=== PATIENT | female | born 1955 | race Caucasian/White ===

== ENCOUNTER 2017-07-25 16:23 | Emergency (ER) | payer MEDICARE, OTHER ==
[~2017-07-25] VITALS: Ht 165.1 cm; Wt 56.7 kg
[~2017-07-25 16:23] MED LIST: ALBIPROI INH; ALBU90OI61 INH; ALPR.5 PO; ANTI ANXIETY MED; AZIT250 PO; CARB200; DULO30 PO; DULO60 PO; FLUT1DIS8 INH; HYDACE5 PO; HYDGUAL120 PO; IBUP400 PO; KETO10 PO; LEVFLO500 PO; METCAR500 PO; Multivitamin1 EAC2 PO; NAPR500; NAPR500 PO; OXYACE5T PO; PARO20; PRED20 PO; RXOXYACE PO; TRAZ100; TRAZ100 PO
[2017-07-25] MEDS ORDERED: BUSP10 PO (16:33)
[2017-07-25 16:54] LABS: BASOPHILS ABSOLUTE AUTO 0.04 K/mm3 (0.00-0.23); BASOPHILS PERCENT AUTO 1 % (0-2); EOSINOPHILS ABSOLUTE AUTO 0.07 K/mm3 (0.00-0.68); EOSINOPHILS PERCENT AUTO 1 % (0-6); Hematocrit 43.9 % (33.0-51.0); Hemoglobin 14.1 g/dL (11.5-16.0); IMMATURE GRAN ABSOLUTE AUTO 0.01 K/mm3 (0.00-0.10); IMMATURE GRAN PERCENT AUTO 0 % (0-1); LYMPHOCYTES ABSOLUTE AUTO 1.87 K/mm3 (0.84-5.20); LYMPHOCYTES PERCENT AUTO 37 % (21-46); MONOCYTES ABSOLUTE AUTO 0.53 K/mm3 (0.16-1.47); MONOCYTES PERCENT AUTO 11 % (4-13); Mean Corpuscular HGB 30.6 pg (26.0-34.0); Mean Corpuscular HGB Conc 32.1 g/dL (31.5-36.5); Mean Corpuscular Volume 95 fL (80-100); Mean Platelet Volume 9.5 fL (9.1-12.4); NEUTROPHILS ABSOLUTE AUTO 2.55 K/mm3 (1.96-9.15); NEUTROPHILS PERCENT AUTO 50 % (41-73); Platelet Count 422 K/mm3 (150-400); RDW Coefficient Variation 12.5 % (11.7-14.2); RDW Standard Deviation 44.1 fL (35.1-46.3); Red Blood Cell Count 4.61 M/mm3 (3.80-5.20); White Blood Cell Count 5.07 K/mm3 (4.00-11.30)
[2017-07-25 17:13] LABS: Alanine Aminotransfer (ALT/SGP 18 U/L (12-78); Albumin, Blood 3.9 g/dL (3.4-5.0); Albumin/Globulin Ratio 0.9 (0.8-1.8); Alk Phos 121 U/L (50-136); Anion Gap 7 mmol/L (6-16); Aspartate Aminotrans (AST/SGOT 21 U/L (12-37); Bilirubin, Total 0.4 mg/dL (0.1-1.0); Blood Urea Nitrogen 6 mg/dL (8-24); Bun/Creatinine Ratio 8.2 (12.0-20.0); CO2, Blood 28 mmol/L (21-32); Calcium, Blood 9.2 mg/dL (8.5-10.1); Chloride, Blood 99 mmol/L (98-108); Creatinine, Blood 0.73 mg/dL (0.40-1.00); Globulin, Blood 4.3 g/dL (2.2-4.0); Glomerular Filtration Rate >60 (60-); Glucose, Blood 119 mg/dL (70-99); Potassium, Blood 4.1 mmol/L (3.5-5.5); Sodium, Blood 134 mmol/L (136-145); Total Protein, Blood 8.2 g/dL (6.4-8.2)
[2017-07-25 17:41] LABS: PCO2 Arterial 45.8 mmHg (35-45); PO2 Arterial 61.9 mmHg (80-100); pH Blood Arterial 7.41 (7.35-7.45)
== END 2017-07-25 18:10 | disposition home or self-care (01) ==
LOC: ER 16:23
PROVIDERS: Emergency Medicine
DX: R04.2 Hemoptysis (principal); J44.9 Chronic obstructive pulmonary disease, unspecified; F32.9 Major depressive disorder, single episode, unspecified; Z79.899 Other long term (current) drug therapy
CPT/HCPCS: 36415; 36600; 71046; 80053; 82803; 85025; 93005; 93010; 99283

== ENCOUNTER 2018-05-06 17:19 | Inpatient (IN) | payer MEDICARE, OTHER ==
[~2018-05-06] VITALS: Ht 162.6 cm; Wt 51.9 kg
[~2018-05-06 17:19] MED LIST changes: +ADVIL PO; +AZIT500 PO; +BUSP10 PO; -TRAZ100 PO
[2018-05-06 18:29] LABS: BASOPHILS ABSOLUTE AUTO 0.04 K/mm3 (0.00-0.23); BASOPHILS PERCENT AUTO 0 % (0-2); EOSINOPHILS PERCENT AUTO 0 % (0-6); Hematocrit 37.4 % (33.0-51.0); Hemoglobin 12.4 g/dL (11.5-16.0); IMMATURE GRAN ABSOLUTE AUTO 0.18 K/mm3 (0.00-0.10); IMMATURE GRAN PERCENT AUTO 1 % (0-1); LYMPHOCYTES ABSOLUTE AUTO 0.83 K/mm3 (0.84-5.20); LYMPHOCYTES PERCENT AUTO 4 % (21-46); MONOCYTES ABSOLUTE AUTO 2.33 K/mm3 (0.16-1.47); MONOCYTES PERCENT AUTO 10 % (4-13); Mean Corpuscular HGB Conc 33.2 g/dL (31.5-36.5); Mean Corpuscular Volume 90 fL (80-100); Mean Platelet Volume 10.3 fL (9.1-12.4); NEUTROPHILS ABSOLUTE AUTO 19.93 K/mm3 (1.96-9.15); NEUTROPHILS PERCENT AUTO 85 % (41-73); Platelet Count 401 K/mm3 (150-400); RDW Standard Deviation 46.4 fL (35.1-46.3); Red Blood Cell Count 4.14 M/mm3 (3.80-5.20); White Blood Cell Count 23.31 K/mm3 (4.00-11.30)
[2018-05-06 18:44] LABS: Alanine Aminotransfer (ALT/SGP 14 U/L (12-78); Albumin, Blood 2.8 g/dL (3.4-5.0); Albumin/Globulin Ratio 0.6 (0.8-1.8); Alk Phos 105 U/L (50-136); Anion Gap 9 mmol/L (6-16); Aspartate Aminotrans (AST/SGOT 19 U/L (12-37); Bilirubin, Total 0.9 mg/dL (0.1-1.0); Blood Urea Nitrogen 8 mg/dL (8-24); Bun/Creatinine Ratio 13.7 (12.0-20.0); CO2, Blood 29 mmol/L (21-32); Calcium, Blood 8.8 mg/dL (8.5-10.1); Chloride, Blood 91 mmol/L (98-108); Creatinine, Blood 0.58 mg/dL (0.40-1.00); Globulin, Blood 4.8 g/dL (2.2-4.0); Glomerular Filtration Rate >60 (60-); Glucose, Blood 101 mg/dL (70-99); Potassium, Blood 3.8 mmol/L (3.5-5.5); Sodium, Blood 129 mmol/L (136-145); Total Protein, Blood 7.6 g/dL (6.4-8.2)
[2018-05-06 18:47] LABS: International Normalized Ratio 1.03; Prothrombin Time Results 10.9 Sec (9.7-11.5)
[2018-05-06 18:54] LABS: Troponin I <0.015 ng/mL (0.000-0.040)
[2018-05-06 19:21] LABS: Influenza A Negative (NEGATIVE); Influenza B Negative (NEGATIVE)
[2018-05-06] MEDS ORDERED: **INCOMPLETE MED REC (19:39)
[2018-05-06] MEDS ORDERED: TRAZ100 PO (19:45)
[2018-05-06] MEDS ORDERED: DULO30 PO (19:46)
[2018-05-06] MEDS ORDERED: Buspirone HCl7.5 MG PO (19:46)
[2018-05-06] MEDS ORDERED: ALBU90OI INH (19:48)
[2018-05-06] MEDS ORDERED: FLUT1DIS5 INH (20:01)
[2018-05-06] MEDS ORDERED: ALBU2.5V5 NEB (20:02)
--- NOTE | 2018-05-06 20:06 | NUR ---
pt has chronic back pain from old fracture she takes alleve and uses marijuanna for relief. may benefit from lidoderm patch. pt states she cannot lay flat. She has had minimal medical care and has not followed up on her cancer care recently. pt states she recently had a fall. established relationship will follow up to see if she will maintain regular health care.
[2018-05-06 21:34] LABS: Source, Urine Catheter
[2018-05-06 21:36] LABS: Bilirubin, Urine Neg (Neg); Blood, Urine 1+ (Neg); Glucose Qualitative, Urine Neg (Neg); Ketones, Urine 2+ (Neg); Leukocyte Esterase, Urine Neg (Neg); Nitrite, Urine Neg (Neg); Protein, Urine Neg (Neg); Specific Gravity, Urine 1.005 (1.003-1.022); Urobilinogen, Urine 1+ (Normal)
[2018-05-06 21:43] LABS: Appearance, Urine Clear (Clear); Color, Urine Yellow (P-Yellow)
[2018-05-06 21:44] LABS: Bacteria Few /hpf; Red Blood Cells, Urine 0-2 /hpf (0-2); Squamous Epithelial Cells Not Seen /hpf (Few); Transitional Epithelial Cells Few /hpf (0-Rare); White Blood Cells, Urine 0-2 /hpf (0-5)
[2018-05-07 01:20] LABS: Hematocrit 35.5 % (33.0-51.0); Hemoglobin 11.6 g/dL (11.5-16.0); Mean Corpuscular HGB 29.9 pg (26.0-34.0); Mean Corpuscular HGB Conc 32.7 g/dL (31.5-36.5); Mean Corpuscular Volume 92 fL (80-100); Mean Platelet Volume 9.7 fL (9.1-12.4); Platelet Count 358 K/mm3 (150-400); RDW Coefficient Variation 13.9 % (11.7-14.2); RDW Standard Deviation 47.2 fL (35.1-46.3); Red Blood Cell Count 3.88 M/mm3 (3.80-5.20); White Blood Cell Count 16.65 K/mm3 (4.00-11.30)
[2018-05-07 01:38] LABS: Anion Gap 9 mmol/L (6-16); Blood Urea Nitrogen 7 mg/dL (8-24); Bun/Creatinine Ratio 11.2 (12.0-20.0); CO2, Blood 27 mmol/L (21-32); Calcium, Blood 8.6 mg/dL (8.5-10.1); Chloride, Blood 99 mmol/L (98-108); Creatinine, Blood 0.63 mg/dL (0.40-1.00); Glomerular Filtration Rate >60 (60-); Glucose, Blood 134 mg/dL (70-99); Potassium, Blood 3.2 mmol/L (3.5-5.5); Sodium, Blood 135 mmol/L (136-145)
[2018-05-07 01:41] LABS: Source, Urine Catheter
[2018-05-07 01:44] LABS: Bilirubin, Urine Neg (Neg); Blood, Urine 1+ (Neg); Glucose Qualitative, Urine Neg (Neg); Ketones, Urine 2+ (Neg); Leukocyte Esterase, Urine 1+ (Neg); Nitrite, Urine Neg (Neg); Protein, Urine Neg (Neg); Specific Gravity, Urine 1.005 (1.003-1.022); Urobilinogen, Urine 2+ (Normal)
[2018-05-07 01:47] LABS: Appearance, Urine Clear (Clear); Color, Urine Yellow (P-Yellow)
[2018-05-07 01:49] LABS: Bacteria Few /hpf; Red Blood Cells, Urine 0-2 /hpf (0-2); Squamous Epithelial Cells Rare /hpf (Few)
--- NOTE | 2018-05-07 07:41 | NUR ---
SHIFT SUMMARY RECEIVED REPORT FROM DIAN DOMINGUEZ IN ED. ARRIVED TO ICU VIA STRETCHER @ AROUND 2200. AMBULATED TO BED FROM STRETCHER WITHOUT ASSISTANCE. A/O X4, ABLE TO MAKE NEEDS KNOWN. COOPERATIVE WITH CARE. ANSWERS QUESTIONS APPROPRIATELY. NO C/O PAIN/DISCOMFORT. ON 1L VIA NC SATING @ 95%; EQUAL RISE AND FALL; RESPIRATIONS EVEN. HYPOTENSIVE. RECEIVED 1L NS. APPEARED TO REST. NO ACUTE CHANGES NOTED. AMBULATED TO BSC WITHOUT ASSISTANCE. BED IN LOWEST POSITION. CALL LIGHT IN REACH. CONTINUED TO MONITOR OVER SHIFT. REPORT GIVEN TO DAY SHIFT RN.
--- NOTE | 2018-05-07 17:31 | NUR ---
PT HAS HAD REPEATED LOW BLOOD PRESSURES THROUGHOUT DAY. HAS RECEIVED 1.5 LITERS NS WITH MINIMAL INCREASE IN SYSTOLIC BP. IS NOTIFIED AND ORDER FOR MIDODRINE PO TID. TO START TONIGHT AT 1800.
--- NOTE | 2018-05-07 17:53 | NUR ---
END OF SHIFT; PT HAD LOW BP THROUGHOUT SHIFT. RECEIVED 1.5 LITERS NS WITH MINIMAL RESULTS. NEW ORDER FOR MIDODRINE 5MG TID RECIEVED. FIRST DOSE AT 1800 TONIGHT. PT HAS PLEASANT AFFECT AND IS COOPERATIVE WITH CARE. LUNGS ARE COARSE THROUGHOUT AND PT IS ON ROOM AIR AT THIS TIME. SHE IS AO X 4. PT IS IN CONTACT PRECAUTINS FOR MRSA. WILL CONTINUE TO MONITOR THIS PATIENT UNTIL REPORT AND HAND OFF TO NOC SHIFT RN.
[2018-05-08 03:36] LABS: BASOPHILS ABSOLUTE AUTO 0.03 K/mm3 (0.00-0.23); BASOPHILS PERCENT AUTO 0 % (0-2); EOSINOPHILS PERCENT AUTO 0 % (0-6); Hematocrit 32.7 % (33.0-51.0); Hemoglobin 10.4 g/dL (11.5-16.0); IMMATURE GRAN ABSOLUTE AUTO 0.23 K/mm3 (0.00-0.10); IMMATURE GRAN PERCENT AUTO 1 % (0-1); LYMPHOCYTES ABSOLUTE AUTO 0.26 K/mm3 (0.84-5.20); LYMPHOCYTES PERCENT AUTO 1 % (21-46); MONOCYTES ABSOLUTE AUTO 0.95 K/mm3 (0.16-1.47); MONOCYTES PERCENT AUTO 4 % (4-13); Mean Corpuscular HGB 29.5 pg (26.0-34.0); Mean Corpuscular HGB Conc 31.8 g/dL (31.5-36.5); Mean Corpuscular Volume 93 fL (80-100); Mean Platelet Volume 9.8 fL (9.1-12.4); NEUTROPHILS ABSOLUTE AUTO 23.74 K/mm3 (1.96-9.15); NEUTROPHILS PERCENT AUTO 94 % (41-73); Platelet Count 429 K/mm3 (150-400); RDW Coefficient Variation 14.3 % (11.7-14.2); RDW Standard Deviation 48.9 fL (35.1-46.3); Red Blood Cell Count 3.52 M/mm3 (3.80-5.20); White Blood Cell Count 25.21 K/mm3 (4.00-11.30)
[2018-05-08 03:55] LABS: Alanine Aminotransfer (ALT/SGP 14 U/L (12-78); Albumin, Blood 2.2 g/dL (3.4-5.0); Albumin/Globulin Ratio 0.5 (0.8-1.8); Alk Phos 72 U/L (50-136); Anion Gap 9 mmol/L (6-16); Aspartate Aminotrans (AST/SGOT 18 U/L (12-37); Bilirubin, Total 0.3 mg/dL (0.1-1.0); Blood Urea Nitrogen 7 mg/dL (8-24); Bun/Creatinine Ratio 11.5 (12.0-20.0); CO2, Blood 25 mmol/L (21-32); Calcium, Blood 8.8 mg/dL (8.5-10.1); Chloride, Blood 105 mmol/L (98-108); Creatinine, Blood 0.61 mg/dL (0.40-1.00); Globulin, Blood 4.1 g/dL (2.2-4.0); Glomerular Filtration Rate >60 (60-); Glucose, Blood 172 mg/dL (70-99); Potassium, Blood 2.6 mmol/L (3.5-5.5); Sodium, Blood 139 mmol/L (136-145); Total Protein, Blood 6.3 g/dL (6.4-8.2)
--- NOTE | 2018-05-08 04:38 | NUR ---
SHIFT SUMMARY: PATIENT HAD VERY FEW EPISODES OF SOB THIS SHIFT, UNABLE TO OBTAIN SPUTUM PATIENT DOES NOT HAVE A PRODUCTIVE COUGH AT THIS TIME. PATIENT VSS, CALL LIGHT WITHIN REACH AND USED APPROPRIATLY, BED LOW AND LOCKED AND MONITORING PATIENT CLOSELY.
--- NOTE | 2018-05-08 04:49 | NUR ---
K+ PATIENTS POTASSIUM LEVEL DROPPED TO 2.6, MD CHRISTINE NOTIFIED, ORDERS RECIEVED
--- NOTE | 2018-05-08 07:40 | NUR ---
ASSUMED CARE: PT SITTING UP IN BED, AWAKE, DENIES NEEDS OR CONCERNS AT THIS TIME. INDEPENDENT TO BSC
--- NOTE | 2018-05-08 07:59 | NUR ---
PT HAS IV KCL ORDERED BUT IV IS TOO PAINFUL. DISCUSSED WITH TILTROTOR CREW CHIEF TO DETERMINE WHO CAN PLACE POWERGLIDE. SPOKE WITH DANIELLA BIGGS. RN TO PLACE POWERGLIDE LATER THIS AM
[2018-05-08] MEDS ORDERED: GUAI600T33 PO (10:10)
[2018-05-08] MEDS ORDERED: MIDO5 PO (10:10)
[2018-05-08] MEDS ORDERED: LEVFLO500 PO (10:10)
[2018-05-08] MEDS ORDERED: PRED10 PO (10:12)
--- NOTE | 2018-05-08 13:36 | NUR ---
PT GIVEN DC INSTRUCTIONS. IVS DC'D WNL. DISCHARGE PLANNING SCHEDULED FOLLOW UP APPOINTMENT. PT ESCORTED OUT VIA WHEEL CHAIR BY HOSPITAL STAFF. NO FURTHER QUESTIONS OR CONCERNS.
--- NOTE | 2018-05-08 17:51 | NUR ---
Makayla was happy to be going home. She expressed hope for continued recovery and denied any lifestyle changes needed. She was appreciative of prayer and emotional encouragement.
== END 2018-05-08 13:10 | disposition home or self-care (01) | DRG 191 ==
LOC: ER 17:19 → ICUW 21:37 → PCU 22:01 → ICUW 22:10
PROVIDERS: Emergency Medicine; Internal Medicine; Nurse Practitioner Acute Care; ADMIT Internal Medicine
DX: J44.1 Chronic obstructive pulmonary disease with (acute) exacerbation (principal); E87.1 Hypo-osmolality and hyponatremia; C34.12 Malignant neoplasm of upper lobe, left bronchus or lung; E87.6 Hypokalemia; F17.210 Nicotine dependence, cigarettes, uncomplicated; Z85.118 Personal history of other malignant neoplasm of bronchus and lung; Z90.2 Acquired absence of lung [part of]; F32.9 Major depressive disorder, single episode, unspecified; E86.0 Dehydration
CPT/HCPCS: 36415; 71045; 80048; 80053; 81001; 83605; 83690; 83735; 84145; 84484; 85025; 85027; 85610; 85730; 87040; 87081; 87086; 87804; 93005; 93010; 93971; 94640; 94760; 96365; 96367; 96375; 99285-25; J0456; J0696; J1650; J2930; J3480; J7030; J7040; J7050; J7120; P9612

== ENCOUNTER 2020-10-20 15:47 | Emergency (ER) | payer MEDICARE, OTHER ==
[~2020-10-20] VITALS: Ht 165.1 cm; Wt 52.2 kg
[~2020-10-20 15:47] MED LIST changes: +**INCOMPLETE MED REC; +ALBU2.5V5 NEB; +ALBU90OI INH; +FLUT1DIS5 INH; +GUAI600T33 PO; +MIDO5 PO; +PRED10 PO
[2020-10-20 16:22] LABS: BASOPHILS ABSOLUTE AUTO 0.05 K/mm3 (0.00-0.23); BASOPHILS PERCENT AUTO 0 % (0-2); EOSINOPHILS ABSOLUTE AUTO 0.04 K/mm3 (0.00-0.68); EOSINOPHILS PERCENT AUTO 0 % (0-6); Hemoglobin 15.2 g/dL (11.5-16.0); IMMATURE GRAN ABSOLUTE AUTO 0.06 K/mm3 (0.00-0.10); IMMATURE GRAN PERCENT AUTO 1 % (0-1); LYMPHOCYTES ABSOLUTE AUTO 1.09 K/mm3 (0.84-5.20); LYMPHOCYTES PERCENT AUTO 9 % (21-46); MONOCYTES ABSOLUTE AUTO 1.32 K/mm3 (0.16-1.47); MONOCYTES PERCENT AUTO 11 % (4-13); Mean Corpuscular HGB 29.8 pg (26.0-34.0); Mean Corpuscular HGB Conc 33.8 g/dL (31.5-36.5); Mean Corpuscular Volume 88 fL (80-100); NEUTROPHILS ABSOLUTE AUTO 9.34 K/mm3 (1.96-9.15); NEUTROPHILS PERCENT AUTO 79 % (41-73); Platelet Count 389 K/mm3 (150-400); RDW Coefficient Variation 13.6 % (11.7-14.2); RDW Standard Deviation 43.9 fL (35.1-46.3)
[2020-10-20 16:39] LABS: Alanine Aminotransfer (ALT/SGP 13 U/L (12-78); Albumin, Blood 3.1 g/dL (3.4-5.0); Albumin/Globulin Ratio 0.6 (0.8-1.8); Alk Phos 76 U/L (50-136); Anion Gap 10 mmol/L (6-16); Aspartate Aminotrans (AST/SGOT 11 U/L (12-37); Blood Urea Nitrogen 26 mg/dL (8-24); Bun/Creatinine Ratio 30.6 (12.0-20.0); CO2, Blood 28 mmol/L (21-32); Calcium, Blood 9.7 mg/dL (8.5-10.1); Chloride, Blood 90 mmol/L (98-108); Creatinine, Blood 0.85 mg/dL (0.40-1.00); Glomerular Filtration Rate >60 (60-); Glucose, Blood 116 mg/dL (70-99); Sodium, Blood 128 mmol/L (136-145); Total Protein, Blood 8.1 g/dL (6.4-8.2); Troponin I <0.015 ng/mL (0.000-0.040)
[2020-10-20] MEDS ORDERED: DOXY100 PO (18:22)
[2020-10-20] MEDS ORDERED: POTA20PAC PO (18:22)
[2020-10-20] MEDS ORDERED: PRED20 PO (18:22)
[2020-10-20] MEDS ORDERED: ONDA4ODT MM (18:37)
== END 2020-10-20 18:56 | disposition home or self-care (01) ==
LOC: ER 15:47
PROVIDERS: Emergency Medicine
DX: J20.9 Acute bronchitis, unspecified (principal); E87.6 Hypokalemia; E87.1 Hypo-osmolality and hyponatremia; J44.0 Chronic obstructive pulmonary disease with (acute) lower respiratory infection; Z88.0 Allergy status to penicillin; Z91.048 Other nonmedicinal substance allergy status; Z87.891 Personal history of nicotine dependence
CPT/HCPCS: 71045; 80053; 84484; 85025; 93005; 93010; 99285-25; A9270; J7512

== ENCOUNTER 2020-10-27 16:09 | Inpatient (IN) | payer MEDICARE, OTHER ==
[~2020-10-27] VITALS: Ht 154.9 cm; Wt 64.5 kg
[~2020-10-27 16:09] MED LIST changes: +DOXY100 PO; +ONDA4ODT MM; +POTA20PAC PO
[2020-10-27 16:57] LABS: Alanine Aminotransfer (ALT/SGP 9 U/L (12-78); Albumin/Globulin Ratio 0.5 (0.8-1.8); Alk Phos 64 U/L (50-136); Anion Gap 10 mmol/L (6-16); Aspartate Aminotrans (AST/SGOT 11 U/L (12-37); Bilirubin, Total 0.9 mg/dL (0.1-1.0); Blood Urea Nitrogen 14 mg/dL (8-24); Bun/Creatinine Ratio 15.1 (12.0-20.0); CO2, Blood 25 mmol/L (21-32); Calcium, Blood 8.9 mg/dL (8.5-10.1); Chloride, Blood 92 mmol/L (98-108); Creatinine, Blood 0.93 mg/dL (0.40-1.00); Glomerular Filtration Rate >60 (60-); Glucose, Blood 67 mg/dL (70-99); Potassium, Blood 4.4 mmol/L (3.5-5.5); Sodium, Blood 127 mmol/L (136-145)
[2020-10-27 16:58] LABS: International Normalized Ratio 1.14; Prothrombin Time Results 12.2 Sec (9.7-11.5)
[2020-10-27 17:02] LABS: PCO2 Arterial 35.8 mmHg (35-45); PO2 Arterial 133 mmHg (80-100); pH Blood Arterial 7.43 (7.35-7.45)
[2020-10-27 17:29] LABS: Hematocrit 32.1 % (33.0-51.0); Hemoglobin 10.5 g/dL (11.5-16.0); Mean Corpuscular HGB 29.7 pg (26.0-34.0); Mean Corpuscular HGB Conc 32.7 g/dL (31.5-36.5); Mean Corpuscular Volume 91 fL (80-100); Mean Platelet Volume 9.5 fL (9.1-12.4); Platelet Count 322 K/mm3 (150-400); RDW Coefficient Variation 14.3 % (11.7-14.2); RDW Standard Deviation 47.8 fL (35.1-46.3); Red Blood Cell Count 3.54 M/mm3 (3.80-5.20); White Blood Cell Count 30.19 K/mm3 (4.00-11.30)
[2020-10-27 17:59] LABS: Source, Urine Catheter
[2020-10-27 18:02] LABS: Appearance, Urine Hazy (Clear); Blood, Urine 1+ (Neg); Color, Urine Amber (P-Yellow); Glucose Qualitative, Urine Neg (Neg); Ketones, Urine 1+ (Neg); Leukocyte Esterase, Urine 1+ (Neg); Nitrite, Urine Neg (Neg); Protein, Urine 3+ (Neg); Urobilinogen, Urine 2+ (Normal)
[2020-10-27 18:07] LABS: BAND PERCENT MAN 34 % (0-8); BASOPHILS PERCENT MAN 0 % (0-2); EOSINOPHILS PERCENT MAN 0 % (0-6); LYMPHOCYTES % ATYPICAL MANUAL 1 % (0-0); LYMPHOCYTES PERCENT MAN 1 % (21-46); METAMYELOCYTE PERCENT MAN 1 % (0-0); MONOCYTES PERCENT MAN 2 % (4-13); NEUTROPHILS ABSOLUTE MAN 28.68 K/mm3 (1.96-9.15); SEG NEUTROPHILS PERCENT MAN 61 % (41-73); TOTAL CELLS COUNTED 100
[2020-10-27] MEDS ORDERED: Buspirone HCl7.5 MG PO (18:12)
[2020-10-27] MEDS ORDERED: DULO60 PO (18:12)
[2020-10-27] MEDS ORDERED: TRAZ100 PO (18:13)
[2020-10-27 18:20] LABS: Bilirubin, Urine 1+ (Neg)
[2020-10-27 18:21] LABS: Hyaline Casts 0-2 /lpf (0-2)
[2020-10-27 18:22] LABS: Amorphous Light (0-Heavy); Bacteria Mod /hpf; Red Blood Cells, Urine 0-2 /hpf (0-2); Squamous Epithelial Cells Rare /hpf (Few)
[2020-10-28 08:13] LABS: Hematocrit 35.1 % (33.0-51.0); Hemoglobin 11.6 g/dL (11.5-16.0); Mean Corpuscular HGB 29.9 pg (26.0-34.0); Mean Corpuscular Volume 91 fL (80-100); Mean Platelet Volume 9.9 fL (9.1-12.4); Platelet Count 341 K/mm3 (150-400); RDW Coefficient Variation 14.6 % (11.7-14.2); RDW Standard Deviation 48.2 fL (35.1-46.3); Red Blood Cell Count 3.88 M/mm3 (3.80-5.20); White Blood Cell Count 36.28 K/mm3 (4.00-11.30)
[2020-10-28 08:35] LABS: Alanine Aminotransfer (ALT/SGP 7 U/L (12-78); Albumin, Blood 1.6 g/dL (3.4-5.0); Albumin/Globulin Ratio 0.4 (0.8-1.8); Alk Phos 59 U/L (50-136); Anion Gap 7 mmol/L (6-16); Aspartate Aminotrans (AST/SGOT 10 U/L (12-37); Bilirubin, Total 0.6 mg/dL (0.1-1.0); Blood Urea Nitrogen 12 mg/dL (8-24); Bun/Creatinine Ratio 19.2 (12.0-20.0); CO2, Blood 25 mmol/L (21-32); Chloride, Blood 99 mmol/L (98-108); Creatinine, Blood 0.63 mg/dL (0.40-1.00); Globulin, Blood 3.8 g/dL (2.2-4.0); Glomerular Filtration Rate >60 (60-); Glucose, Blood 90 mg/dL (70-99); Potassium, Blood 4.3 mmol/L (3.5-5.5); Sodium, Blood 131 mmol/L (136-145); Total Protein, Blood 5.4 g/dL (6.4-8.2); Troponin I <0.015 ng/mL (0.000-0.040)
[2020-10-28 08:39] LABS: BAND PERCENT MAN 11 % (0-8); BASOPHILS PERCENT MAN 0 % (0-2); EOSINOPHILS PERCENT MAN 0 % (0-6); METAMYELOCYTE ABSOLUTE MAN 0.36 K/mm3 (0.00-0.00); METAMYELOCYTE PERCENT MAN 1 % (0-0); MONOCYTES ABSOLUTE MAN 1.45 K/mm3 (0.16-1.47); MONOCYTES PERCENT MAN 4 % (4-13); MYELOCYTE ABSOLUTE MAN 0.72 K/mm3 (0.00-0.00); MYELOCYTE PERCENT MAN 2 % (0-0); NEUTROPHILS ABSOLUTE MAN 33.74 K/mm3 (1.96-9.15); SEG NEUTROPHILS PERCENT MAN 82 % (41-73); TOTAL CELLS COUNTED 100
[2020-10-28 08:46] LABS: Magnesium, Blood 1.3 mg/dL (1.6-2.4)
--- NOTE | 2020-10-28 15:35 | NUR ---
Spiritual care visit conducted. Patient is lying in bed and resting but easily awakens to the sound of her name. Patient immediately tells me about her housing issues, the conflicts she is having with her landlord and room mates. She shares about her [employer] nahomi and the strength that she gins from it. She talks about her her dog Claudette and the radu she brings. Patient becomes tearful as she discusses the recent of her "long time boyfriend." I normalize her fears and concerns, and provide therapeutic listening, grief support, anxiety continment and prayer. I will continue to remain available to patient.
--- NOTE | 2020-10-29 01:58 | NUR ---
0039 BLOOD SUGAR 79. SANDWICH AND CRANBERRY JUICE GIVEN. CALL LIGHT WITHIN REACH, BED ALARM ON, WILL CONTINUE TO MONITOR.
[2020-10-29 04:50] LABS: Hematocrit 32.2 % (33.0-51.0); Hemoglobin 10.8 g/dL (11.5-16.0); Mean Corpuscular HGB 29.4 pg (26.0-34.0); Mean Corpuscular HGB Conc 33.5 g/dL (31.5-36.5); Mean Corpuscular Volume 88 fL (80-100); Mean Platelet Volume 9.7 fL (9.1-12.4); Platelet Count 324 K/mm3 (150-400); RDW Coefficient Variation 14.6 % (11.7-14.2); RDW Standard Deviation 47.3 fL (35.1-46.3); Red Blood Cell Count 3.67 M/mm3 (3.80-5.20); White Blood Cell Count 25.85 K/mm3 (4.00-11.30)
[2020-10-29 05:07] LABS: Anion Gap 5 mmol/L (6-16); Blood Urea Nitrogen 13 mg/dL (8-24); Bun/Creatinine Ratio 25.5 (12.0-20.0); CO2, Blood 26 mmol/L (21-32); Calcium, Blood 8.3 mg/dL (8.5-10.1); Chloride, Blood 100 mmol/L (98-108); Creatinine, Blood 0.51 mg/dL (0.40-1.00); Glomerular Filtration Rate >60 (60-); Glucose, Blood 98 mg/dL (70-99); Magnesium, Blood 1.8 mg/dL (1.6-2.4); Phosphorus, Blood 2.6 mg/dL (2.5-4.9); Potassium, Blood 3.9 mmol/L (3.5-5.5); Sodium, Blood 131 mmol/L (136-145)
--- NOTE | 2020-10-29 05:38 | NUR ---
CASTING COORDINATOR SUMMARY PT NEW ADMIT TO UNIT ARRIVED AROUND 2129. PT A/O X4, PLEASANT AND COOPERATIVE. PT STATES SHE'S BEEN HAVING CHEST PAIN OFF AND ON ALL DAY AND RADITATES TO HER RIGHT SHOULDER. SHE STATES PAIN IS TOLERABLE. ARRIVED WITH 2L O2 VIA NC SATTING IN THE MID 90'S. PT AMBULATES WITH SBA TO BS. HX OF LEFT LOBECTOMY- SOB AT BASELINE. PT STATES SHE HAD LOBECTOMY DONE AT LEAST 20 YEARS AGO. THIS AM MANUAL BLOOD PRESSURE IS 80/62. TELE REPORTS HR BEEN SINUS AVG IN THE 90'S. PT'S HR CLIMBS UP TO THE 150'S WITH ACTIVITY. PT STATES SHE FEELS DIZZY OFF AND ON. SHE STATES SHE'S BEEN FEELING DIZZY SINCE [address] HOSTALIST [address]. CHRISTINE MADE AWARE. 1L NS DONIS ORDERED AND CURRENTLY RUNNING. DR. CHRISTINE SAID TO RE-ASSESS WITHIN 20 MIN. IF BP HASN'T COME UP BY THEN TO GIVE HIM A CALL. CALL LIGHT WITHIN REACH, BED ALARM ON, WILL CONTINUE TO MONITOR.
--- NOTE | 2020-10-29 06:08 | NUR ---
BP RE-ASSESSMENT BP RE-ASSESSED 88/59. PT IS ALERT AND STATES SHE IS FEELING FINE. HOSPTAILIST DR. CHRISTINE NOTIFIED AGAIN. HE SAID TO RE-ASSESS ONCE BOLOUS IS DONE AND TO CALL BACK IF SYSTOLIC IS LESS THAN 90.
[2020-10-29 07:04] LABS: BAND PERCENT MAN 11 % (0-8); BASOPHILS PERCENT MAN 0 % (0-2); EOSINOPHILS PERCENT MAN 0 % (0-6); LYMPHOCYTES ABSOLUTE MAN 0.25 K/mm3 (0.84-5.20); LYMPHOCYTES PERCENT MAN 1 % (21-46); MONOCYTES ABSOLUTE MAN 0.51 K/mm3 (0.16-1.47); MONOCYTES PERCENT MAN 2 % (4-13); NEUTROPHILS ABSOLUTE MAN 25.07 K/mm3 (1.96-9.15); SEG NEUTROPHILS PERCENT MAN 86 % (41-73); TOTAL CELLS COUNTED 100
[2020-10-29 09:26] LABS: Vancomycin, Trough 10.5 ug/mL (5.0-10.0)
--- NOTE | 2020-10-29 19:17 | NUR ---
SHIFT SUMMARY PT AAOX4, ABLE TO MAKE NEEDS KNOWN, PLEASANT AND COOPERATIVE TO CARE. NO C/O PAIN OR ANY DISCOMFORT THIS SHIFT. NO C/O CP OR N/V/D. PT ON 2LPM O2 VIA NC, SATS >92%. NO ACUTE CHANGES NOTED THIS SHIFT. PT ON IV ABX ORDERED, NO ASE NOTED. PT REQUIRES SBA TO BSC. BED AT LOWEST POSITION. CALL LIGHT WITHIN REACH.
[2020-10-29 23:42] LABS: Base Excess Venous -7.7 mmol/L; Bicarbonate Venous 18.4 mmol/L (24.0-30.0); PCO2 Venous 42.7 mmHg (38-42); PO2 Venous 88.7 mmHg (38-42); pH Blood Venous 7.26 (7.34-7.37)
[2020-10-29 23:52] LABS: Anion Gap 8 mmol/L (6-16); Blood Urea Nitrogen 13 mg/dL (8-24); Bun/Creatinine Ratio 21.7 (12.0-20.0); CO2, Blood 23 mmol/L (21-32); Calcium, Blood 7.4 mg/dL (8.5-10.1); Chloride, Blood 102 mmol/L (98-108); Glomerular Filtration Rate >60 (60-); Glucose, Blood 208 mg/dL (70-99); Magnesium, Blood 1.7 mg/dL (1.6-2.4); Potassium, Blood 4.1 mmol/L (3.5-5.5); Sodium, Blood 133 mmol/L (136-145)
--- NOTE | 2020-10-29 23:53 | NUR ---
RAPID RESPONSE INITIATED NOTIFIED BY [employer] PANTERA THAT PT HR CLIMBED TO 140'S. ASSESSED PT WHO STATED SHE WAS HAVING SOME TROUBLE BREATHING AND NEEDED TO GET TO THE BSC TO URINATE. HELPED PT TO BSC. PT BREATHING SOUNDED CONGESTED AND PT WAS ABLE TO SPIT UP LARGE AMOUNT OF THICK RAI SPUTUM. HELPED PT BACK TO BED AND CHECKED VITALS. O2 SATS 60-70'S ON 2L O2. INCREASED O2 TO 6L VIA NC WITH LITTLE IMPROVEMENT. PLACED PT ON NON REBREATHER AT 12L AND CALLED RT TERESA TO ASSESS PT AND GIVE NEB. DIFFICULTY OBTAINING ACCURATE O2 SAT DUE TO POOR PERFUSION. DURING THIS TIME PT ALSO BECAME CONFUSED AND NON SENSICAL. DIFFICULT TO OBTAIN BP ALSO DUE TO PT CONFUSION AND CONSTANT MOVING AND FIDGETING. WHILE RT SET UP BIPAP, SPOKE WITH DR LOZA REGARDING CHANGE IN PT STATUS. RECIEVED ORDER FOR ABG AND 6 MG IV ADENOSINE PUSH. DUE TO UNCERTAINTY OF WHETHER ADENOSINE PUSH APPROPRIATE ON MEDICAL FLOOR ADMITTING REPRESENTATIVE WAS CALLED AT 2259 SO THAT THOSE TREATMENTS COULD START IMMEDIATELY. CLOUD SOFTWARE ENGINEER PUSHED ADENOSINE AND METOPROLOL WHICH DID HELP HR DECREASE TO 140'S. PT STILL A BIT CONFUSED BUT ANSWERING QUESTIONS MORE APPROPRIATELY AFTER BEING ON BIPAP. MANUAL BP HAD TO BE DONE BY ICU PATIENT RESOURCE COORDINATOR WIWTH USE OF DOPPLER, SBP 70'S. ORDER FROM DR LOZA AND DR LANDON FOR TRANSFER TO PCU. REPORT GIVEN TO DIAN NICOLE. PT TRANSFERED TO PCU1.
--- NOTE | 2020-10-30 01:41 | NUR ---
ASSUMED CARE ASSUMED CARE OF PT AT 2350. PT IS A/OX4. PT DID NOT TOLERATE THE BIPAP SO SHE WAS SWITCHED TO 6L NC, WITH SATURATIONS OF 95%; PT HAS LOW PERFUSION TO EXTREMITIES SKEWING RESULTS. PT LUNG SOUNDS ARE VERY DIMINISHED ALL OVER. PT HAS A PRODUCTIVE COUGH WITH DARK BROWN MUCUS. PT HR REMAINS IN THE HIGH TEENS AND LOW 120S. PT BP HAD TO BE TAKEN MANUALLY, AND HAS REMAINED IN THE 100'S SYSTOLIC. HOSPITALIST BARBI HAS SEEN PT MULTIPLE TIMES SINCE ENTERING PCU. PT C/O HEADACHE, MEDICATED PER ORDERS. PT ALSO C/O NEASEA, MEDICATED PER EMAR. PT REMAINS SITTING ON HER BED CROSS LEGGED, PT STATES SHE FEELS SOB WHEN LAYING DOWN. PT [place] [facility] [place] IN [place]ACH, BED IN LOWEST POSITON.
[2020-10-30 04:03] LABS: Hematocrit 32.1 % (33.0-51.0); Hemoglobin 10.5 g/dL (11.5-16.0); Mean Corpuscular HGB 29.8 pg (26.0-34.0); Mean Corpuscular HGB Conc 32.7 g/dL (31.5-36.5); Mean Corpuscular Volume 91 fL (80-100); Mean Platelet Volume 9.7 fL (9.1-12.4); Platelet Count 311 K/mm3 (150-400); RDW Coefficient Variation 14.9 % (11.7-14.2); RDW Standard Deviation 49.9 fL (35.1-46.3); Red Blood Cell Count 3.52 M/mm3 (3.80-5.20); White Blood Cell Count 23.53 K/mm3 (4.00-11.30)
[2020-10-30 04:13] LABS: Anion Gap 6 mmol/L (6-16); Blood Urea Nitrogen 13 mg/dL (8-24); Bun/Creatinine Ratio 24.1 (12.0-20.0); CO2, Blood 26 mmol/L (21-32); Calcium, Blood 8.3 mg/dL (8.5-10.1); Chloride, Blood 102 mmol/L (98-108); Creatinine, Blood 0.54 mg/dL (0.40-1.00); Glomerular Filtration Rate >60 (60-); Glucose, Blood 124 mg/dL (70-99); Magnesium, Blood 1.7 mg/dL (1.6-2.4); Phosphorus, Blood 2.3 mg/dL (2.5-4.9); Potassium, Blood 3.6 mmol/L (3.5-5.5); Sodium, Blood 134 mmol/L (136-145)
--- NOTE | 2020-10-30 05:39 | NUR ---
SHIFT SUMMARY NO ACUTE CHANGES SINCE ARRIVAL. PT REPORTS FEELING LIKE IT IS EASIER TO BREATH, PT WAS TITRATED DOWN TO 2L NC WHICH WAS WHAT SHE WAS ON BEFORE COMING TO PCU. PT STILL HAS A PRODUCTIVE WET COUGH. CENTRAL LINE DRESSING WAS CHANGED AND CAPS REPLACED. CALL LIGHT IN REACH, BED IN LOWEST POSTION.
[2020-10-30 06:22] LABS: BAND PERCENT MAN 10 % (0-8); BASOPHILS PERCENT MAN 0 % (0-2); EOSINOPHILS PERCENT MAN 0 % (0-6); LYMPHOCYTES ABSOLUTE MAN 0.47 K/mm3 (0.84-5.20); LYMPHOCYTES PERCENT MAN 2 % (21-46); MONOCYTES ABSOLUTE MAN 0.94 K/mm3 (0.16-1.47); MONOCYTES PERCENT MAN 4 % (4-13); MYELOCYTE ABSOLUTE MAN 0.23 K/mm3 (0.00-0.00); MYELOCYTE PERCENT MAN 1 % (0-0); NEUTROPHILS ABSOLUTE MAN 22.11 K/mm3 (1.96-9.15); SEG NEUTROPHILS PERCENT MAN 84 % (41-73); TOTAL CELLS COUNTED 112
--- NOTE | 2020-10-30 10:30 | NUR ---
PT STATUS CHANGED TO MEDICAL WITH TELE. PT TRANSFERRED TO RM 210, BEDSIDE REPORT GIVEN TO AMANDA BIGSG.
[2020-10-30 10:34] LABS: SARS-Cov-2 (COVID-19) PCR, MMC NEGATIVE (NEGATIVE)
--- NOTE | 2020-10-30 12:04 | NUR ---
RAPID RESPONSE. PT BROUGHT TO FLOOR WHILE THIS RN WAS IN ANOTHER ROOM. WAS CALLING FOR REPORT WHEN DURESS ALERT WAS CALLED. ANOTHER RN STATED THE PATIENT HAD PULLED CENTRAL LINE AND A RAPID WAS CALLED. PRESSURE WAS HELD ON THE SITE AND NO BLEEDING WAS NOTED, PT WAS PLACED FLAT. RAPID RESPONSE TEAM REMOVED SUTURES AND OCCLUSIVE DRESSING PLACED OVER SITE. PT CONTINUES TO BE AA0X4, SATS 94% ON 2L VIA NC. PT GIVEN CALL LIGHT AND EDUCATED ON NEED TO CALL IF SHE FEELS LIGHT HEADED OR DIZZY. PER BULLDOZER OPERATOR PT HAD HR UP TO 1TEENS DURING RAPID BUT IS NOW IN THE MID 100'S.
--- NOTE | 2020-10-30 12:09 | NUR ---
SPOKE WITH DR. SHOEMAKER, NOTIFED HER OF REMOVAL OF CENTRAL LINE. ORDERS RECIEVED FOR POWERGLIDE TO BE PLACED. CURRENTLY AWAITING PLACEMENT OF POWERGLIDE.
--- NOTE | 2020-10-30 12:32 | NUR ---
PT STILL RESTING IN BED DENIES SHORTNESS OF BREATH. CURRENTLY POWERGLIDE BEING PLACED. SMALL BRUISING NOTICED AT SITE OF PREVIOUS CENTRAL LINE AREA.
--- NOTE | 2020-10-30 17:26 | NUR ---
SHIFT SUMMARY NO ACUTE CHANGES SINCE RAPID RESPONSE. SMALL AMOUNT OF BRUISING ON NECK WHERE CENTRAL LINE WAS REMOVED. TEGADERM REMAINS INTACT OVER SITE. PT HAS NEW POWERGLIDE TO ELSA, IV ABX AND SALINE INFUSING. PT REMAINS ON 3L VIA NC. SHE DENIES ANY SOB. AA0X4 BUT WILL MAKE SOME OCCASIONAL REMARKS THAT ARE INAPPROPRIATE FOR THE QUESTION ASKED OR TANGENTAL IN SPEECH, UNCHANGED SINCE HER ARRIVAL TO UNIT. PLAN IS TO CONTINUE WEANING OFF OXYGEN AND CONTINUE ABX.
--- NOTE | 2020-10-31 04:21 | NUR ---
SHIFT SUMMARY PT IMPUSLIVE + FLAILS WITH MOVEMENT. AAOX4. PT DENIES DISCOMFORT/NAUSEA T/O NIGHT. NO EMESIS. LUNG SOUNDS COARSE WITH SMALL AMOUNT THICK MUCOUS + PRODUCTIVE COUGH. TELEMETRY IN PLACE, ST 100s TO 120s, X1 METPROLOL GIVEN AT MIDNIGHT WITH GOOD EFFECT. PT IMPULSIVE WITH MOVEMENT + RESTROOM NEEDS, BED ALARM IN PLACE FOR SAFETY. PT RESTING WELL THIS AM WITH CALL LIGHT IN REACH, IVF + ABX PER ORDERS.
[2020-10-31 06:18] LABS: Hematocrit 36.2 % (33.0-51.0); Hemoglobin 11.3 g/dL (11.5-16.0); Mean Corpuscular HGB Conc 31.2 g/dL (31.5-36.5); Mean Corpuscular Volume 93 fL (80-100); Mean Platelet Volume 9.9 fL (9.1-12.4); Platelet Count 298 K/mm3 (150-400); RDW Coefficient Variation 15.3 % (11.7-14.2); RDW Standard Deviation 52.1 fL (35.1-46.3); White Blood Cell Count 19.92 K/mm3 (4.00-11.30)
[2020-10-31 06:42] LABS: Anion Gap 5 mmol/L (6-16); Blood Urea Nitrogen 7 mg/dL (8-24); Bun/Creatinine Ratio 15.6 (12.0-20.0); CO2, Blood 27 mmol/L (21-32); Calcium, Blood 7.6 mg/dL (8.5-10.1); Chloride, Blood 103 mmol/L (98-108); Creatinine, Blood 0.45 mg/dL (0.40-1.00); Glomerular Filtration Rate >60 (60-); Glucose, Blood 69 mg/dL (70-99); Potassium, Blood 4.4 mmol/L (3.5-5.5); Sodium, Blood 135 mmol/L (136-145)
[2020-10-31 07:01] LABS: BASOPHILS PERCENT MAN 0 % (0-2); EOSINOPHILS PERCENT MAN 0 % (0-6); TOTAL CELLS COUNTED 100
[2020-10-31 07:04] LABS: BAND PERCENT MAN 5 % (0-8); LYMPHOCYTES ABSOLUTE MAN 0.59 K/mm3 (0.84-5.20); LYMPHOCYTES PERCENT MAN 3 % (21-46); MONOCYTES ABSOLUTE MAN 0.59 K/mm3 (0.16-1.47); MONOCYTES PERCENT MAN 3 % (4-13); NEUTROPHILS ABSOLUTE MAN 18.72 K/mm3 (1.96-9.15); SEG NEUTROPHILS PERCENT MAN 89 % (41-73)
--- NOTE | 2020-10-31 09:37 | NUR ---
PT REFUSED TO ANSWER QUESTIONS DURING ASSESSMENT, STATED SHE KNEW WHERE SHE WAS AND WHY SHE WAS HERE. "I JUST WANT TO GO TO SLEEP AND BE LEFT ALONE"
--- NOTE | 2020-10-31 16:02 | NUR ---
SHIFT SUMMARY PT REMAINS INTERMITTENTLY CONFUSED AND IMPULSIVE, HAS NOT BEEN USING CALL LIGHT TODAY AND IS SETTING OFF BED ALARM WHEN SHE NEEDS TO USE THE BATHROOM. DIFFICULT TO REDIRECT WITH CARE. INC OF VOID ONCE TODAY BUT UP TO BSC OTHERWISE. VERY UNSTEADY ON HER FEET. ROLLS AND REPOSITIONS SELF FREQUENTLY WHILE SLEEPING, REMOVES OXYGEN AT TIMES BUT ALLOWS IT TO BE PLACED BACK ON, SATS REMAIN GREATER THAN 92% WHILE WEARING OXYGEN, SATS IMPROVE QUICKLY ONCE OXYGEN PLACED.IV ABX CONTINUE TO INFUSE.
--- NOTE | 2020-11-01 01:58 | NUR ---
CBG: PT REFUSING MIDNIGHT CBG. PT STATES "I JUST WANT TO SLEEP, DO NOT WAKE ME UP AGAIN"
[2020-11-01 05:36] LABS: BASOPHILS ABSOLUTE AUTO 0.05 K/mm3 (0.00-0.23); BASOPHILS PERCENT AUTO 0 % (0-2); EOSINOPHILS ABSOLUTE AUTO 0.02 K/mm3 (0.00-0.68); EOSINOPHILS PERCENT AUTO 0 % (0-6); Hematocrit 36.8 % (33.0-51.0); Hemoglobin 11.6 g/dL (11.5-16.0); IMMATURE GRAN ABSOLUTE AUTO 0.21 K/mm3 (0.00-0.10); IMMATURE GRAN PERCENT AUTO 1 % (0-1); LYMPHOCYTES ABSOLUTE AUTO 0.37 K/mm3 (0.84-5.20); LYMPHOCYTES PERCENT AUTO 2 % (21-46); MONOCYTES ABSOLUTE AUTO 0.93 K/mm3 (0.16-1.47); MONOCYTES PERCENT AUTO 6 % (4-13); Mean Corpuscular HGB 29.4 pg (26.0-34.0); Mean Corpuscular HGB Conc 31.5 g/dL (31.5-36.5); Mean Corpuscular Volume 93 fL (80-100); Mean Platelet Volume 9.9 fL (9.1-12.4); NEUTROPHILS ABSOLUTE AUTO 14.97 K/mm3 (1.96-9.15); NEUTROPHILS PERCENT AUTO 91 % (41-73); Platelet Count 314 K/mm3 (150-400); RDW Coefficient Variation 15.1 % (11.7-14.2); RDW Standard Deviation 52.2 fL (35.1-46.3); Red Blood Cell Count 3.94 M/mm3 (3.80-5.20); White Blood Cell Count 16.55 K/mm3 (4.00-11.30)
[2020-11-01 05:56] LABS: Anion Gap 7 mmol/L (6-16); Blood Urea Nitrogen 8 mg/dL (8-24); Bun/Creatinine Ratio 20.2 (12.0-20.0); CO2, Blood 27 mmol/L (21-32); Calcium, Blood 7.2 mg/dL (8.5-10.1); Chloride, Blood 102 mmol/L (98-108); Glomerular Filtration Rate >60 (60-); Glucose, Blood 54 mg/dL (70-99); Potassium, Blood 3.5 mmol/L (3.5-5.5); Sodium, Blood 136 mmol/L (136-145)
--- NOTE | 2020-11-01 06:21 | NUR ---
GLUCISE: PT GLUCOSE 54 THIS AM. PT REP FEELING TIRED, NO CHANGES IN MENTATION NOTED. PT DRANK APPX 300ML SWEETENED APPLE JUICE, YOGURT ALSO PROVIDED. WILL REASSESS CBG
--- NOTE | 2020-11-01 06:23 | NUR ---
PT VSS T/O NIGHT; SATS >90% ON 3LO2 NC. LUNGS REMAIN COARSE, W/PROD COUGH. PT REQ RT TX THIS AM. GLUCOSE 54 THIS AM, SWEETENED APPLE JUICE PROVIDED, AWAITING CBG RECHECK. PT IRRITABLE AT TIMES, REQ SHE JUST WANTS TO BE LEFT ALONE TO SLEEP. PT UP TO BSC QW/1 ASSIST. IVF AND ABX CONT PER ORDERS. BED ALARM ON FOR SAFETY.
[2020-11-01 08:58] LABS: Base Excess Venous 1.2 mmol/L; Bicarbonate Venous 24.1 mmol/L (24.0-30.0); PCO2 Venous 65.1 mmHg (38-42); PO2 Venous 64.2 mmHg (38-42)
[2020-11-01 08:59] LABS: pH Blood Venous 7.25 (7.34-7.37)
--- NOTE | 2020-11-01 09:13 | NUR ---
DR NOTIFIED OF CRITICAL PH AFTER DISCUSSING WITH BRAND COMMUNICATIONS MANAGER.
--- NOTE | 2020-11-01 11:45 | NUR ---
DR TO SEE PT. DISCUSSED PT'S STATUS/ORDERS WITH RT.
[2020-11-02 05:21] LABS: Base Excess Venous 7.4 mmol/L; Bicarbonate Venous 29.7 mmol/L (24.0-30.0); PCO2 Venous 50.1 mmHg (38-42); PO2 Venous 35.3 mmHg (38-42); pH Blood Venous 7.41 (7.34-7.37)
[2020-11-02 05:21] LABS: BASOPHILS ABSOLUTE AUTO 0.02 K/mm3 (0.00-0.23); BASOPHILS PERCENT AUTO 0 % (0-2); Hematocrit 31.6 % (33.0-51.0); Hemoglobin 10.4 g/dL (11.5-16.0); LYMPHOCYTES ABSOLUTE AUTO 0.52 K/mm3 (0.84-5.20); LYMPHOCYTES PERCENT AUTO 5 % (21-46); MONOCYTES ABSOLUTE AUTO 0.83 K/mm3 (0.16-1.47); MONOCYTES PERCENT AUTO 8 % (4-13); Mean Corpuscular HGB 29.5 pg (26.0-34.0); Mean Corpuscular HGB Conc 32.9 g/dL (31.5-36.5); Mean Corpuscular Volume 90 fL (80-100); Mean Platelet Volume 9.9 fL (9.1-12.4); NRBC ABSOLUTE 0.02 K/mm3 (0.00-0.02); NRBC Auto 0.2 /100 WBC (0.0-0.2); Platelet Count 300 K/mm3 (150-400); RDW Coefficient Variation 14.6 % (11.7-14.2); RDW Standard Deviation 47.8 fL (35.1-46.3); Red Blood Cell Count 3.53 M/mm3 (3.80-5.20); White Blood Cell Count 11.12 K/mm3 (4.00-11.30)
[2020-11-02 05:22] LABS: EOSINOPHILS ABSOLUTE AUTO 0.06 K/mm3 (0.00-0.68); EOSINOPHILS PERCENT AUTO 1 % (0-6); IMMATURE GRAN ABSOLUTE AUTO 0.06 K/mm3 (0.00-0.10); IMMATURE GRAN PERCENT AUTO 1 % (0-1); NEUTROPHILS ABSOLUTE AUTO 9.63 K/mm3 (1.96-9.15); NEUTROPHILS PERCENT AUTO 87 % (41-73)
[2020-11-02 05:40] LABS: Alanine Aminotransfer (ALT/SGP 10 U/L (12-78); Albumin, Blood 1.5 g/dL (3.4-5.0); Albumin/Globulin Ratio 0.5 (0.8-1.8); Alk Phos 55 U/L (50-136); Anion Gap 4 mmol/L (6-16); Aspartate Aminotrans (AST/SGOT 7 U/L (12-37); Bilirubin, Total 0.5 mg/dL (0.1-1.0); Blood Urea Nitrogen 5 mg/dL (8-24); Bun/Creatinine Ratio 12.8 (12.0-20.0); CO2, Blood 32 mmol/L (21-32); Calcium, Blood 7.5 mg/dL (8.5-10.1); Chloride, Blood 93 mmol/L (98-108); Creatinine, Blood 0.39 mg/dL (0.40-1.00); Globulin, Blood 3.2 g/dL (2.2-4.0); Glomerular Filtration Rate >60 (60-); Glucose, Blood 104 mg/dL (70-99); Potassium, Blood 3.3 mmol/L (3.5-5.5); Sodium, Blood 129 mmol/L (136-145); Total Protein, Blood 4.7 g/dL (6.4-8.2)
--- NOTE | 2020-11-02 07:50 | NUR ---
DR'S HERE TO SEE PT, DISCUSSED PT'S STATUS.
--- NOTE | 2020-11-02 08:07 | NUR ---
SUMMARY PT HOPES FOR DISCHARGE HOME TODAY.ALTHOUGH CONTINUES TO DESAT AT NIGHT WHEN SHE TAKES HER O2 OFF AND BASELINE WAS R/A AT HOME.PT ALSO HAVING LOOSE BMS YESTERDAY DAY AND DIVIDING MACHINE OPERATOR HELPER.DR LANDON MADE ROUNDS DURING SHIFT CHANGE THIS AM AND PATRICIA SANCHES RN ADVISED DOTOR OF THIS WITH NO NEW ORDERS RECEIVED.
--- NOTE | 2020-11-02 13:11 | NUR ---
DR LOZA RECENTLY TO SEE PT.
[2020-11-02 15:59] LABS: Anion Gap 5 mmol/L (6-16); Blood Urea Nitrogen 4 mg/dL (8-24); Bun/Creatinine Ratio 10.4 (12.0-20.0); CO2, Blood 31 mmol/L (21-32); Calcium, Blood 7.5 mg/dL (8.5-10.1); Chloride, Blood 91 mmol/L (98-108); Creatinine, Blood 0.39 mg/dL (0.40-1.00); Glomerular Filtration Rate >60 (60-); Glucose, Blood 112 mg/dL (70-99); Sodium, Blood 127 mmol/L (136-145)
[2020-11-03 04:36] LABS: BASOPHILS ABSOLUTE AUTO 0.07 K/mm3 (0.00-0.23); BASOPHILS PERCENT AUTO 0 % (0-2); Hematocrit 34.2 % (33.0-51.0); Hemoglobin 11.4 g/dL (11.5-16.0); LYMPHOCYTES ABSOLUTE AUTO 0.38 K/mm3 (0.84-5.20); LYMPHOCYTES PERCENT AUTO 2 % (21-46); MONOCYTES ABSOLUTE AUTO 0.71 K/mm3 (0.16-1.47); MONOCYTES PERCENT AUTO 4 % (4-13); Mean Corpuscular HGB 29.5 pg (26.0-34.0); Mean Corpuscular HGB Conc 33.3 g/dL (31.5-36.5); Mean Corpuscular Volume 89 fL (80-100); Mean Platelet Volume 10.3 fL (9.1-12.4); NRBC ABSOLUTE 0.03 K/mm3 (0.00-0.02); NRBC Auto 0.2 /100 WBC (0.0-0.2); Platelet Count 288 K/mm3 (150-400); RDW Coefficient Variation 14.3 % (11.7-14.2); RDW Standard Deviation 46.1 fL (35.1-46.3); Red Blood Cell Count 3.86 M/mm3 (3.80-5.20); White Blood Cell Count 16.92 K/mm3 (4.00-11.30)
[2020-11-03 04:39] LABS: EOSINOPHILS ABSOLUTE AUTO 0.01 K/mm3 (0.00-0.68); EOSINOPHILS PERCENT AUTO 0 % (0-6); IMMATURE GRAN ABSOLUTE AUTO 0.07 K/mm3 (0.00-0.10); IMMATURE GRAN PERCENT AUTO 0 % (0-1); NEUTROPHILS ABSOLUTE AUTO 15.68 K/mm3 (1.96-9.15); NEUTROPHILS PERCENT AUTO 93 % (41-73)
[2020-11-03 04:53] LABS: Albumin, Blood 2.1 g/dL (3.4-5.0); Anion Gap 4 mmol/L (6-16); Blood Urea Nitrogen 4 mg/dL (8-24); Bun/Creatinine Ratio 11.5 (12.0-20.0); CO2, Blood 32 mmol/L (21-32); Calcium, Blood 7.4 mg/dL (8.5-10.1); Chloride, Blood 91 mmol/L (98-108); Creatinine, Blood 0.35 mg/dL (0.40-1.00); Glomerular Filtration Rate >60 (60-); Glucose, Blood 104 mg/dL (70-99); Magnesium, Blood 1.5 mg/dL (1.6-2.4); Phosphorus, Blood 1.3 mg/dL (2.5-4.9); Potassium, Blood 4.1 mmol/L (3.5-5.5); Sodium, Blood 127 mmol/L (136-145)
--- NOTE | 2020-11-03 06:03 | NUR ---
SHIFT SUMMARY PT AOX4. PLEASANT AND COOPERATIVE CARE. VSS. PT ON 92% ON ROOM AIR. 2L AT NIGHT FOR COMFORT REPORTS INTERMITTENT SOB. SATURATING AT OVER 95% WITH 2L 02 NIGHT EVEN WHEN SHE COMPLAINT OF SOB. PT ALSO HAD SOME SLEPT LAST NIGHT. PT REPORTS THAT SHE GOT SOME REST. USED BSC WITH 1 MIN ASSIST. USE THE CALL LIGHT BUT IMPULSIVE. BED ALARM FOR SAFETY. TELE ON SINUS TACH AT 100'S. PT DENIES CHEST PAIN. REMAIN TO HAVE POOR APPETITE. TOLERATING PO INTAKE. DENIES N/V. PT ON FLUID RESTRICTION. EDEMA ON ALL EXTREMITIES. PT STILL COUGHING (PRODUCTIVE) WITH BROWN SPUTUM. ENC DEEP BREATH AND USE OF I/S. CALL LIGHT WITHIN REACH. WILL PROVIDE REPORT TO ONCOMING NURSE.
--- NOTE | 2020-11-03 17:56 | NUR ---
SHIFT SUMMARY PATIENT SLEEPY THROUGHOUT SHIFT. BUT ANSWERS APPROPRIATELY WHEN AWAKE. TOLERATING SMALL AMOUNT OF REGULAR DIET AND FLUIDS. ROUTINE IV ABX AND ELECTROLYTE REPLACEMENTS RUNNING. 1 PERSON SBA WITH FWW TO COMMODE. VOIDING IN ATTENDS AND COMMODE. SMALL BM THIS SHIFT. 2L O2 VIA NC TO KEEP SATS UP. LUNG SOUNDS COARSE AND WET. PRODUCTIVE COUGH OF THICK BROWN SPUTUM. DR CINTRON CONSULTED FOR TENACIOUS PNEUMONIA INFECTION.
--- NOTE | 2020-11-03 22:30 | NUR ---
PT REQUEST NOT TO BE AWOKEN FOR VITAL SIGNS OR CHEMBGs. PT EDUCATED REGARDING ORDERS + WILL CONTINUE TO ENCOURAGE PARTICIPATION WITH CARE.
--- NOTE | 2020-11-04 04:23 | NUR ---
SHIFT SUMMARY PT RESTED WELL T/O NIGHT. AAOX4. PT DENIES DISCOMFORT/NAUSEA T/O SHIFT. LUNG SOUNDS COARSE AND DIMINISHED T/O. 2L VIA NC. PT SOB WITH MINIMAL EXERTION. FLUID RESTRICTION OF 1200cc NOTED. PT REFUSING TO BE AWOKEN THIS NOC SHIFT, WILL CONTINUE TO EDUCATED + ENCOURAGE COOPERATION WITH CARE. TELEMETRY IN PLACE, NSR WITH PACs 80s T/O NIGHT. NO ACUTE CHANGES THIS SHIFT. PT CURRENTLY RESTING IN BED WITH CALL LIGHT IN REACH.
[2020-11-04 06:01] LABS: Hematocrit 33.1 % (33.0-51.0); Hemoglobin 10.9 g/dL (11.5-16.0); Mean Corpuscular HGB 29.5 pg (26.0-34.0); Mean Corpuscular HGB Conc 32.9 g/dL (31.5-36.5); Mean Corpuscular Volume 90 fL (80-100); Mean Platelet Volume 10.2 fL (9.1-12.4); NRBC ABSOLUTE 0.03 K/mm3 (0.00-0.02); NRBC Auto 0.2 /100 WBC (0.0-0.2); Platelet Count 237 K/mm3 (150-400); RDW Coefficient Variation 14.5 % (11.7-14.2); RDW Standard Deviation 47.8 fL (35.1-46.3); Red Blood Cell Count 3.69 M/mm3 (3.80-5.20); White Blood Cell Count 14.83 K/mm3 (4.00-11.30)
[2020-11-04 06:26] LABS: BAND PERCENT MAN 9 % (0-8); BASOPHILS PERCENT MAN 0 % (0-2); EOSINOPHILS PERCENT MAN 0 % (0-6); LYMPHOCYTES % ATYPICAL MANUAL 1 % (0-0); LYMPHOCYTES ABSOLUTE MAN 1.18 K/mm3 (0.84-5.20); LYMPHOCYTES PERCENT MAN 7 % (21-46); MONOCYTES ABSOLUTE MAN 0.59 K/mm3 (0.16-1.47); MONOCYTES PERCENT MAN 4 % (4-13); NEUTROPHILS ABSOLUTE MAN 13.05 K/mm3 (1.96-9.15); SEG NEUTROPHILS PERCENT MAN 79 % (41-73); TOTAL CELLS COUNTED 100
[2020-11-04 06:32] LABS: Alanine Aminotransfer (ALT/SGP 11 U/L (12-78); Albumin/Globulin Ratio 0.6 (0.8-1.8); Alk Phos 59 U/L (50-136); Anion Gap 5 mmol/L (6-16); Aspartate Aminotrans (AST/SGOT 9 U/L (12-37); Bilirubin, Total 0.4 mg/dL (0.1-1.0); Blood Urea Nitrogen 3 mg/dL (8-24); Bun/Creatinine Ratio 9.2 (12.0-20.0); CO2, Blood 34 mmol/L (21-32); Calcium, Blood 7.4 mg/dL (8.5-10.1); Chloride, Blood 91 mmol/L (98-108); Creatinine, Blood 0.33 mg/dL (0.40-1.00); Globulin, Blood 3.1 g/dL (2.2-4.0); Glomerular Filtration Rate >60 (60-); Glucose, Blood 100 mg/dL (70-99); Magnesium, Blood 1.9 mg/dL (1.6-2.4); Phosphorus, Blood 1.8 mg/dL (2.5-4.9); Potassium, Blood 3.5 mmol/L (3.5-5.5); Sodium, Blood 130 mmol/L (136-145); Total Protein, Blood 5.1 g/dL (6.4-8.2)
--- NOTE | 2020-11-04 17:28 | NUR ---
pt states feels like she is less sob this evening as compared to beginning if shift. emiliana po food and fluidsin small amounts. 1 person assist oob to void.
[2020-11-05 05:36] LABS: BASOPHILS ABSOLUTE AUTO 0.03 K/mm3 (0.00-0.23); BASOPHILS PERCENT AUTO 0 % (0-2); EOSINOPHILS ABSOLUTE AUTO 0.04 K/mm3 (0.00-0.68); EOSINOPHILS PERCENT AUTO 0 % (0-6); Hematocrit 32.2 % (33.0-51.0); Hemoglobin 10.6 g/dL (11.5-16.0); IMMATURE GRAN ABSOLUTE AUTO 0.07 K/mm3 (0.00-0.10); IMMATURE GRAN PERCENT AUTO 1 % (0-1); LYMPHOCYTES ABSOLUTE AUTO 0.39 K/mm3 (0.84-5.20); LYMPHOCYTES PERCENT AUTO 3 % (21-46); MONOCYTES ABSOLUTE AUTO 0.72 K/mm3 (0.16-1.47); MONOCYTES PERCENT AUTO 6 % (4-13); Mean Corpuscular HGB 29.8 pg (26.0-34.0); Mean Corpuscular HGB Conc 32.9 g/dL (31.5-36.5); Mean Corpuscular Volume 90 fL (80-100); Mean Platelet Volume 10.6 fL (9.1-12.4); NEUTROPHILS ABSOLUTE AUTO 11.43 K/mm3 (1.96-9.15); NEUTROPHILS PERCENT AUTO 90 % (41-73); NRBC ABSOLUTE 0.06 K/mm3 (0.00-0.02); NRBC Auto 0.5 /100 WBC (0.0-0.2); Platelet Count 217 K/mm3 (150-400); RDW Coefficient Variation 14.4 % (11.7-14.2); RDW Standard Deviation 47.5 fL (35.1-46.3); Red Blood Cell Count 3.56 M/mm3 (3.80-5.20); White Blood Cell Count 12.68 K/mm3 (4.00-11.30)
--- NOTE | 2020-11-05 06:10 | NUR ---
SHIFT SUMMARY PT RESTED WELL THIS NOC SHIFT. AAOX4. PT DENIES DISCOMFORT/NAUSEA. LUNG SOUNDS COARSE / DIMINISHED T/O. NO CRACKLES NOTED. 2L VIA NC. PT AWOKE THIS AM WITH A SATURATED ATTENDS. PT UP TO BSC 1 PERSON SBA, LINEN + GOWN CHANGED. TELEMETRY NSR WITH PACs 80s. NO ACUTE CHANGES OVER NIGHT. PT CURRENTLY RESTING IN BED WITH CALL LIGHT IN REACH.
[2020-11-05 06:20] LABS: Anion Gap 5 mmol/L (6-16); Blood Urea Nitrogen 3 mg/dL (8-24); Bun/Creatinine Ratio 7.6 (12.0-20.0); CO2, Blood 38 mmol/L (21-32); Calcium, Blood 7.3 mg/dL (8.5-10.1); Chloride, Blood 88 mmol/L (98-108); Glomerular Filtration Rate >60 (60-); Glucose, Blood 83 mg/dL (70-99); Phosphorus, Blood 1.4 mg/dL (2.5-4.9); Sodium, Blood 131 mmol/L (136-145)
[2020-11-05 16:58] LABS: SARS-Cov-2 (COVID-19) PCR, MMC NEGATIVE (NEGATIVE)
--- NOTE | 2020-11-05 18:11 | NUR ---
VOIDING LARGE AMOUNTS CLEAR YELLOW URINE, INCONTINENT AT TIMES. PT STATES IS BREATHING MUCH BETTER TODAY THAN YESTERDAY. PT IN AGREEMENT WITH PLAN TO TRANSFER TO SNF IN AM
[2020-11-06 04:32] LABS: BASOPHILS ABSOLUTE AUTO 0.01 K/mm3 (0.00-0.23); BASOPHILS PERCENT AUTO 0 % (0-2); EOSINOPHILS ABSOLUTE AUTO 0.02 K/mm3 (0.00-0.68); EOSINOPHILS PERCENT AUTO 0 % (0-6); Hematocrit 32.2 % (33.0-51.0); Hemoglobin 10.6 g/dL (11.5-16.0); IMMATURE GRAN ABSOLUTE AUTO 0.07 K/mm3 (0.00-0.10); IMMATURE GRAN PERCENT AUTO 1 % (0-1); LYMPHOCYTES ABSOLUTE AUTO 0.45 K/mm3 (0.84-5.20); LYMPHOCYTES PERCENT AUTO 5 % (21-46); MONOCYTES ABSOLUTE AUTO 0.81 K/mm3 (0.16-1.47); MONOCYTES PERCENT AUTO 8 % (4-13); Mean Corpuscular HGB 29.3 pg (26.0-34.0); Mean Corpuscular HGB Conc 32.9 g/dL (31.5-36.5); Mean Corpuscular Volume 89 fL (80-100); Mean Platelet Volume 10.4 fL (9.1-12.4); NEUTROPHILS ABSOLUTE AUTO 8.45 K/mm3 (1.96-9.15); NEUTROPHILS PERCENT AUTO 86 % (41-73); NRBC ABSOLUTE 0.03 K/mm3 (0.00-0.02); NRBC Auto 0.3 /100 WBC (0.0-0.2); Platelet Count 220 K/mm3 (150-400); RDW Coefficient Variation 14.6 % (11.7-14.2); Red Blood Cell Count 3.62 M/mm3 (3.80-5.20); White Blood Cell Count 9.81 K/mm3 (4.00-11.30)
[2020-11-06 04:51] LABS: Anion Gap 6 mmol/L (6-16); Blood Urea Nitrogen 7 mg/dL (8-24); Bun/Creatinine Ratio 17.4 (12.0-20.0); CO2, Blood 42 mmol/L (21-32); Calcium, Blood 7.1 mg/dL (8.5-10.1); Chloride, Blood 85 mmol/L (98-108); Glomerular Filtration Rate >60 (60-); Glucose, Blood 82 mg/dL (70-99); Magnesium, Blood 1.6 mg/dL (1.6-2.4); Phosphorus, Blood 1.6 mg/dL (2.5-4.9); Potassium, Blood 2.7 mmol/L (3.5-5.5); Sodium, Blood 133 mmol/L (136-145)
--- NOTE | 2020-11-06 08:11 | NUR ---
SUMMARY PT REPORTS FEELING EL TONIGHT. PLANS FOR POSSIBLE DISCHARGE TO SNF TODAY.
--- NOTE | 2020-11-06 10:15 | NUR ---
IV ACCESS: PT IN PROCEDURE TO GET POWERGLIDE PLACEMENT AT THIS TIME. WILL GIVE MEDS WHEN IV IN PLACE AND PT AVAILABLE.
--- NOTE | 2020-11-06 13:34 | NUR ---
REPORT PASSED TO DIAN MONDRAGON. PLAN FOR DC TO SNF THIS AFTERNOON.
--- NOTE | 2020-11-06 14:03 | NUR ---
REPORT TO ABDI AT [facility] [employer] TEACHER TIME 2:30
--- NOTE | 2020-11-06 15:44 | NUR ---
DISCHARGED TO VIA W/C IN NO ACUTE DISTRESS.
== END 2020-11-06 15:30 | DRG 871 ==
LOC: ER 16:09 → ICUW 20:08 → ER 20:08 → SURS 20:09 → ERHOLD 20:09 → MEDS 10-28 21:27 → PCU 10-29 23:33 → SURS 10-30 11:25
PROVIDERS: Family Medicine; Internal Medicine; Student in an Organized Health Care Education/Training Program; ADMIT Hospitalist
PROC: 3E043XZ Introduction of Vasopressor into Central Vein, Percutaneous Approach (ICD-10-PCS; principal; 2020-10-27)
PROC: 02HV33Z Insertion of Infusion Device into Superior Vena Cava, Percutaneous Approach (ICD-10-PCS; 2020-10-27)
DX: A41.52 Sepsis due to Pseudomonas (principal); R65.21 Severe sepsis with septic shock; J15.1 Pneumonia due to Pseudomonas; G92 Toxic encephalopathy; I21.A1 Myocardial infarction type 2; J96.01 Acute respiratory failure with hypoxia; E87.1 Hypo-osmolality and hyponatremia; E46 Unspecified protein-calorie malnutrition; F17.210 Nicotine dependence, cigarettes, uncomplicated; Z85.118 Personal history of other malignant neoplasm of bronchus and lung; E16.2 Hypoglycemia, unspecified; E83.42 Hypomagnesemia; F17.200 Nicotine dependence, unspecified, uncomplicated; Z88.0 Allergy status to penicillin; Z88.8 Allergy status to other drugs, medicaments and biological substances; Z79.899 Other long term (current) drug therapy; Z88.1 Allergy status to other antibiotic agents; Z90.49 Acquired absence of other specified parts of digestive tract; F32.9 Major depressive disorder, single episode, unspecified; Z90.2 Acquired absence of lung [part of]; Z98.890 Other specified postprocedural states; J43.9 Emphysema, unspecified; Z98.51 Tubal ligation status; Z68.20 Body mass index [BMI] 20.0-20.9, adult
CPT/HCPCS: 36415; 36556; 36600; 51798; 71045; 71046; 71260; 80048; 80053; 80069; 80202; 81001; 82803; 82947; 83605; 83735; 83880; 84100; 84145; 84484; 85025; 85610; 85730; 87040; 87070; 87077; 87086; 87186; 87205; 93005; 93010; 93306; 94640; 94644; 94660; 94664; 94760; 94762; 96361-59; 96365-59; 96367-59; 96368; 96375-59; 97110; 97161; 97165; 97530; 97535; 99285-25; A9270; C1751; J0153; J0456; J0692; J1644; J1650; J1940; J2185; J2405; J2930; J3370; J3475; J3480; J7030; J7040; J7050; J7060; J7070; J7120; P9046; P9612; Q0167; Q9967; U0004

== ENCOUNTER 2020-11-20 19:30 | Inpatient (IN) | payer MEDICARE, OTHER ==
[~2020-11-20] VITALS: Ht 165.1 cm; Wt 54.5 kg
[~2020-11-20 19:30] MED LIST changes: +Buspirone HCl7.5 MG PO; +TRAZ100 PO
[2020-11-20 19:55] LABS: BASOPHILS ABSOLUTE AUTO 0.07 K/mm3 (0.00-0.23); BASOPHILS PERCENT AUTO 0 % (0-2); EOSINOPHILS PERCENT AUTO 0 % (0-6); Hemoglobin 9.5 g/dL (11.5-16.0); IMMATURE GRAN ABSOLUTE AUTO 0.23 K/mm3 (0.00-0.10); IMMATURE GRAN PERCENT AUTO 1 % (0-1); LYMPHOCYTES ABSOLUTE AUTO 1.48 K/mm3 (0.84-5.20); LYMPHOCYTES PERCENT AUTO 7 % (21-46); MONOCYTES ABSOLUTE AUTO 2.72 K/mm3 (0.16-1.47); MONOCYTES PERCENT AUTO 12 % (4-13); Mean Corpuscular HGB 29.1 pg (26.0-34.0); Mean Corpuscular HGB Conc 32.8 g/dL (31.5-36.5); Mean Corpuscular Volume 89 fL (80-100); Mean Platelet Volume 9.1 fL (9.1-12.4); NEUTROPHILS ABSOLUTE AUTO 17.96 K/mm3 (1.96-9.15); NEUTROPHILS PERCENT AUTO 80 % (41-73); Platelet Count 699 K/mm3 (150-400); RDW Coefficient Variation 14.7 % (11.7-14.2); RDW Standard Deviation 48.1 fL (35.1-46.3); Red Blood Cell Count 3.26 M/mm3 (3.80-5.20); White Blood Cell Count 22.46 K/mm3 (4.00-11.30)
[2020-11-20 20:14] LABS: Alanine Aminotransfer (ALT/SGP 20 U/L (12-78); Albumin, Blood 2.1 g/dL (3.4-5.0); Albumin/Globulin Ratio 0.5 (0.8-1.8); Alk Phos 73 U/L (50-136); Anion Gap 9 mmol/L (6-16); Aspartate Aminotrans (AST/SGOT 22 U/L (12-37); Bilirubin, Total 0.6 mg/dL (0.1-1.0); Blood Urea Nitrogen 16 mg/dL (8-24); Bun/Creatinine Ratio 31.3 (12.0-20.0); CO2, Blood 27 mmol/L (21-32); Calcium, Blood 8.5 mg/dL (8.5-10.1); Chloride, Blood 90 mmol/L (98-108); Creatinine, Blood 0.51 mg/dL (0.40-1.00); Globulin, Blood 4.6 g/dL (2.2-4.0); Glomerular Filtration Rate >60 (60-); Glucose, Blood 101 mg/dL (70-99); Potassium, Blood 3.9 mmol/L (3.5-5.5); Sodium, Blood 126 mmol/L (136-145); Total Protein, Blood 6.7 g/dL (6.4-8.2); Troponin I <0.015 ng/mL (0.000-0.040)
[2020-11-20 20:17] LABS: Magnesium, Blood 1.1 mg/dL (1.6-2.4)
[2020-11-20 20:35] LABS: Source, Urine Clean Catch
[2020-11-20 20:40] LABS: Appearance, Urine Clear (Clear); Bilirubin, Urine Neg (Neg); Blood, Urine 1+ (Neg); Color, Urine Yellow (P-Yellow); Glucose Qualitative, Urine Neg (Neg); Ketones, Urine Neg (Neg); Leukocyte Esterase, Urine Neg (Neg); Nitrite, Urine Neg (Neg); Protein, Urine 2+ (Neg); Specific Gravity, Urine 1.005 (1.003-1.022); Urobilinogen, Urine NORM (Normal)
[2020-11-20 20:47] LABS: Bacteria Few /hpf; Hyaline Casts 0-2 /lpf (0-2); Red Blood Cells, Urine 0-2 /hpf (0-2); Squamous Epithelial Cells Few /hpf (Few); White Blood Cells, Urine 0-2 /hpf (0-5)
[2020-11-21 00:12] LABS: Free Thyroxine 1.23 ng/dL (0.70-1.60)
[2020-11-21 10:10] LABS: BASOPHILS ABSOLUTE AUTO 0.13 K/mm3 (0.00-0.23); BASOPHILS PERCENT AUTO 0 % (0-2); Hematocrit 24.5 % (33.0-51.0); Hemoglobin 7.9 g/dL (11.5-16.0); LYMPHOCYTES ABSOLUTE AUTO 0.67 K/mm3 (0.84-5.20); LYMPHOCYTES PERCENT AUTO 2 % (21-46); MONOCYTES ABSOLUTE AUTO 1.21 K/mm3 (0.16-1.47); MONOCYTES PERCENT AUTO 3 % (4-13); Mean Corpuscular HGB Conc 32.2 g/dL (31.5-36.5); Mean Corpuscular Volume 90 fL (80-100); Mean Platelet Volume 9.1 fL (9.1-12.4); Platelet Count 666 K/mm3 (150-400); RDW Coefficient Variation 15.2 % (11.7-14.2); RDW Standard Deviation 49.7 fL (35.1-46.3); Red Blood Cell Count 2.72 M/mm3 (3.80-5.20); White Blood Cell Count 35.68 K/mm3 (4.00-11.30)
[2020-11-21 10:15] LABS: EOSINOPHILS ABSOLUTE AUTO 0.01 K/mm3 (0.00-0.68); EOSINOPHILS PERCENT AUTO 0 % (0-6); IMMATURE GRAN PERCENT AUTO 1 % (0-1); NEUTROPHILS ABSOLUTE AUTO 33.26 K/mm3 (1.96-9.15); NEUTROPHILS PERCENT AUTO 93 % (41-73)
[2020-11-21 10:16] LABS: PCO2 Arterial 50.1 mmHg (35-45); PO2 Arterial 342 mmHg (80-100)
[2020-11-21 10:18] LABS: pH Blood Arterial 7.29 (7.35-7.45)
[2020-11-21 10:35] LABS: Magnesium, Blood 1.8 mg/dL (1.6-2.4)
[2020-11-21 10:36] LABS: Alanine Aminotransfer (ALT/SGP 13 U/L (12-78); Albumin, Blood 2.1 g/dL (3.4-5.0); Albumin/Globulin Ratio 0.6 (0.8-1.8); Anion Gap 7 mmol/L (6-16); Aspartate Aminotrans (AST/SGOT 17 U/L (12-37); BAND PERCENT MAN 8 % (0-8); BASOPHILS PERCENT MAN 0 % (0-2); Bilirubin, Total 0.8 mg/dL (0.1-1.0); Blood Urea Nitrogen 8 mg/dL (8-24); Bun/Creatinine Ratio 18.6 (12.0-20.0); CO2, Blood 24 mmol/L (21-32); Calcium, Blood 7.2 mg/dL (8.5-10.1); Chloride, Blood 101 mmol/L (98-108); Creatinine, Blood 0.43 mg/dL (0.40-1.00); EOSINOPHILS PERCENT MAN 0 % (0-6); Globulin, Blood 3.7 g/dL (2.2-4.0); Glomerular Filtration Rate >60 (60-); Glucose, Blood 138 mg/dL (70-99); MONOCYTES ABSOLUTE MAN 1.07 K/mm3 (0.16-1.47); MONOCYTES PERCENT MAN 3 % (4-13); Potassium, Blood 3.1 mmol/L (3.5-5.5); SEG NEUTROPHILS PERCENT MAN 89 % (41-73); Sodium, Blood 132 mmol/L (136-145); TOTAL CELLS COUNTED 100; Total Protein, Blood 5.8 g/dL (6.4-8.2)
[2020-11-21 10:40] LABS: Alk Phos 83 U/L (50-136)
[2020-11-22 03:24] LABS: Hematocrit 23.1 % (33.0-51.0); Hemoglobin 7.5 g/dL (11.5-16.0); Mean Corpuscular HGB Conc 32.5 g/dL (31.5-36.5); Mean Corpuscular Volume 89 fL (80-100); Mean Platelet Volume 8.9 fL (9.1-12.4); Platelet Count 592 K/mm3 (150-400); RDW Coefficient Variation 15.3 % (11.7-14.2); RDW Standard Deviation 49.4 fL (35.1-46.3); Red Blood Cell Count 2.59 M/mm3 (3.80-5.20); White Blood Cell Count 41.24 K/mm3 (4.00-11.30)
[2020-11-22 03:44] LABS: Alanine Aminotransfer (ALT/SGP 11 U/L (12-78); Albumin, Blood 1.7 g/dL (3.4-5.0); Albumin/Globulin Ratio 0.5 (0.8-1.8); Alk Phos 78 U/L (50-136); Anion Gap 5 mmol/L (6-16); Aspartate Aminotrans (AST/SGOT 28 U/L (12-37); Bilirubin, Total 0.5 mg/dL (0.1-1.0); Blood Urea Nitrogen 9 mg/dL (8-24); Bun/Creatinine Ratio 15.4 (12.0-20.0); CO2, Blood 27 mmol/L (21-32); Calcium, Blood 7.4 mg/dL (8.5-10.1); Chloride, Blood 106 mmol/L (98-108); Creatinine, Blood 0.58 mg/dL (0.40-1.00); Globulin, Blood 3.6 g/dL (2.2-4.0); Glomerular Filtration Rate >60 (60-); Glucose, Blood 96 mg/dL (70-99); Potassium, Blood 2.8 mmol/L (3.5-5.5); Sodium, Blood 138 mmol/L (136-145); Total Protein, Blood 5.3 g/dL (6.4-8.2)
[2020-11-22 03:56] LABS: BAND PERCENT MAN 22 % (0-8); BASOPHILS PERCENT MAN 0 % (0-2); EOSINOPHILS PERCENT MAN 0 % (0-6); LYMPHOCYTES ABSOLUTE MAN 0.41 K/mm3 (0.84-5.20); LYMPHOCYTES PERCENT MAN 1 % (21-46); MONOCYTES ABSOLUTE MAN 0.82 K/mm3 (0.16-1.47); MONOCYTES PERCENT MAN 2 % (4-13); SEG NEUTROPHILS PERCENT MAN 75 % (41-73); TOTAL CELLS COUNTED 100
[2020-11-22 04:11] LABS: Magnesium, Blood 1.8 mg/dL (1.6-2.4)
[2020-11-22 05:27] LABS: PCO2 Arterial 47.9 mmHg (35-45); PO2 Arterial 67.1 mmHg (80-100); pH Blood Arterial 7.34 (7.35-7.45)
[2020-11-22 12:24] LABS: Source, Urine Catheter
[2020-11-22 12:26] LABS: Appearance, Urine Hazy (Clear); Bilirubin, Urine Neg (Neg); Blood, Urine 4+ (Neg); Color, Urine Yellow (P-Yellow); Glucose Qualitative, Urine Neg (Neg); Ketones, Urine Neg (Neg); Leukocyte Esterase, Urine Neg (Neg); Nitrite, Urine Neg (Neg); Protein, Urine 2+ (Neg); Specific Gravity, Urine 1.015 (1.003-1.022); Urobilinogen, Urine NORM (Normal)
[2020-11-22 12:53] LABS: Red Blood Cells, Urine 0-2 /hpf (0-2); Squamous Epithelial Cells Rare /hpf (Few)
[2020-11-22 12:54] LABS: Bacteria Mod /hpf
[2020-11-23 03:29] LABS: Hematocrit 22.4 % (33.0-51.0); Hemoglobin 7.3 g/dL (11.5-16.0); Mean Corpuscular HGB 28.9 pg (26.0-34.0); Mean Corpuscular HGB Conc 32.6 g/dL (31.5-36.5); Mean Corpuscular Volume 89 fL (80-100); Mean Platelet Volume 9.3 fL (9.1-12.4); Platelet Count 577 K/mm3 (150-400); RDW Coefficient Variation 15.7 % (11.7-14.2); Red Blood Cell Count 2.53 M/mm3 (3.80-5.20); White Blood Cell Count 26.36 K/mm3 (4.00-11.30)
[2020-11-23 03:48] LABS: Alanine Aminotransfer (ALT/SGP 15 U/L (12-78); Albumin, Blood 1.6 g/dL (3.4-5.0); Albumin/Globulin Ratio 0.4 (0.8-1.8); Alk Phos 86 U/L (50-136); Anion Gap 5 mmol/L (6-16); Aspartate Aminotrans (AST/SGOT 24 U/L (12-37); Bilirubin, Total 0.3 mg/dL (0.1-1.0); Blood Urea Nitrogen 11 mg/dL (8-24); Bun/Creatinine Ratio 19.6 (12.0-20.0); CO2, Blood 25 mmol/L (21-32); Chloride, Blood 112 mmol/L (98-108); Creatinine, Blood 0.56 mg/dL (0.40-1.00); Globulin, Blood 3.8 g/dL (2.2-4.0); Glomerular Filtration Rate >60 (60-); Glucose, Blood 90 mg/dL (70-99); Magnesium, Blood 1.5 mg/dL (1.6-2.4); Potassium, Blood 3.3 mmol/L (3.5-5.5); Sodium, Blood 142 mmol/L (136-145); Total Protein, Blood 5.4 g/dL (6.4-8.2)
[2020-11-23 05:17] LABS: BAND PERCENT MAN 14 % (0-8); BASOPHILS PERCENT MAN 0 % (0-2); EOSINOPHILS ABSOLUTE MAN 0.26 K/mm3 (0.00-0.68); EOSINOPHILS PERCENT MAN 1 % (0-6); LYMPHOCYTES ABSOLUTE MAN 0.52 K/mm3 (0.84-5.20); LYMPHOCYTES PERCENT MAN 2 % (21-46); MONOCYTES ABSOLUTE MAN 0.52 K/mm3 (0.16-1.47); MONOCYTES PERCENT MAN 2 % (4-13); NEUTROPHILS ABSOLUTE MAN 25.04 K/mm3 (1.96-9.15); SEG NEUTROPHILS PERCENT MAN 81 % (41-73); TOTAL CELLS COUNTED 100
[2020-11-24 05:03] LABS: BASOPHILS ABSOLUTE AUTO 0.06 K/mm3 (0.00-0.23); BASOPHILS PERCENT AUTO 0 % (0-2); EOSINOPHILS ABSOLUTE AUTO 0.09 K/mm3 (0.00-0.68); EOSINOPHILS PERCENT AUTO 1 % (0-6); Hematocrit 21.7 % (33.0-51.0); IMMATURE GRAN ABSOLUTE AUTO 0.14 K/mm3 (0.00-0.10); IMMATURE GRAN PERCENT AUTO 1 % (0-1); LYMPHOCYTES PERCENT AUTO 4 % (21-46); MONOCYTES ABSOLUTE AUTO 0.97 K/mm3 (0.16-1.47); MONOCYTES PERCENT AUTO 7 % (4-13); Mean Corpuscular HGB 28.8 pg (26.0-34.0); Mean Corpuscular HGB Conc 32.3 g/dL (31.5-36.5); Mean Corpuscular Volume 89 fL (80-100); Mean Platelet Volume 9.7 fL (9.1-12.4); NEUTROPHILS ABSOLUTE AUTO 12.81 K/mm3 (1.96-9.15); NEUTROPHILS PERCENT AUTO 87 % (41-73); Platelet Count 563 K/mm3 (150-400); RDW Coefficient Variation 15.6 % (11.7-14.2); RDW Standard Deviation 50.8 fL (35.1-46.3); Red Blood Cell Count 2.43 M/mm3 (3.80-5.20); White Blood Cell Count 14.67 K/mm3 (4.00-11.30)
[2020-11-24 05:32] LABS: Anion Gap 4 mmol/L (6-16); Blood Urea Nitrogen 8 mg/dL (8-24); Bun/Creatinine Ratio 18.4 (12.0-20.0); CO2, Blood 24 mmol/L (21-32); Calcium, Blood 7.8 mg/dL (8.5-10.1); Chloride, Blood 113 mmol/L (98-108); Creatinine, Blood 0.43 mg/dL (0.40-1.00); Glomerular Filtration Rate >60 (60-); Glucose, Blood 79 mg/dL (70-99); Magnesium, Blood 1.8 mg/dL (1.6-2.4); Potassium, Blood 3.5 mmol/L (3.5-5.5); Sodium, Blood 141 mmol/L (136-145)
[2020-11-24 07:54] LABS: Tobramycin, Trough <0.3 ug/mL (0.0-1.9)
[2020-11-25 04:49] LABS: BASOPHILS ABSOLUTE AUTO 0.04 K/mm3 (0.00-0.23); BASOPHILS PERCENT AUTO 0 % (0-2); EOSINOPHILS ABSOLUTE AUTO 0.13 K/mm3 (0.00-0.68); EOSINOPHILS PERCENT AUTO 1 % (0-6); Hematocrit 21.2 % (33.0-51.0); Hemoglobin 6.8 g/dL (11.5-16.0); IMMATURE GRAN ABSOLUTE AUTO 0.08 K/mm3 (0.00-0.10); IMMATURE GRAN PERCENT AUTO 1 % (0-1); LYMPHOCYTES ABSOLUTE AUTO 0.86 K/mm3 (0.84-5.20); LYMPHOCYTES PERCENT AUTO 7 % (21-46); MONOCYTES ABSOLUTE AUTO 0.94 K/mm3 (0.16-1.47); MONOCYTES PERCENT AUTO 7 % (4-13); Mean Corpuscular HGB 28.7 pg (26.0-34.0); Mean Corpuscular HGB Conc 32.1 g/dL (31.5-36.5); Mean Corpuscular Volume 90 fL (80-100); Mean Platelet Volume 9.7 fL (9.1-12.4); NEUTROPHILS ABSOLUTE AUTO 11.05 K/mm3 (1.96-9.15); NEUTROPHILS PERCENT AUTO 84 % (41-73); Platelet Count 541 K/mm3 (150-400); RDW Coefficient Variation 15.9 % (11.7-14.2); RDW Standard Deviation 51.8 fL (35.1-46.3); Red Blood Cell Count 2.37 M/mm3 (3.80-5.20)
[2020-11-25 05:19] LABS: Anion Gap 4 mmol/L (6-16); Blood Urea Nitrogen 8 mg/dL (8-24); Bun/Creatinine Ratio 16.8 (12.0-20.0); CO2, Blood 26 mmol/L (21-32); Calcium, Blood 7.6 mg/dL (8.5-10.1); Chloride, Blood 114 mmol/L (98-108); Creatinine, Blood 0.48 mg/dL (0.40-1.00); Glomerular Filtration Rate >60 (60-); Glucose, Blood 98 mg/dL (70-99); Magnesium, Blood 1.5 mg/dL (1.6-2.4); Potassium, Blood 2.8 mmol/L (3.5-5.5); Sodium, Blood 144 mmol/L (136-145)
[2020-11-25 13:32] LABS: Tobramycin, Random 0.6 ug/mL
[2020-11-26 06:35] LABS: BASOPHILS ABSOLUTE AUTO 0.06 K/mm3 (0.00-0.23); BASOPHILS PERCENT AUTO 1 % (0-2); EOSINOPHILS ABSOLUTE AUTO 0.17 K/mm3 (0.00-0.68); EOSINOPHILS PERCENT AUTO 2 % (0-6); Hematocrit 25.6 % (33.0-51.0); Hemoglobin 8.3 g/dL (11.5-16.0); IMMATURE GRAN PERCENT AUTO 1 % (0-1); LYMPHOCYTES ABSOLUTE AUTO 0.99 K/mm3 (0.84-5.20); LYMPHOCYTES PERCENT AUTO 12 % (21-46); MONOCYTES ABSOLUTE AUTO 0.89 K/mm3 (0.16-1.47); MONOCYTES PERCENT AUTO 11 % (4-13); Mean Corpuscular HGB 29.2 pg (26.0-34.0); Mean Corpuscular HGB Conc 32.4 g/dL (31.5-36.5); Mean Corpuscular Volume 90 fL (80-100); Mean Platelet Volume 10.2 fL (9.1-12.4); NEUTROPHILS ABSOLUTE AUTO 5.83 K/mm3 (1.96-9.15); NEUTROPHILS PERCENT AUTO 73 % (41-73); NRBC ABSOLUTE 0.02 K/mm3 (0.00-0.02); NRBC Auto 0.2 /100 WBC (0.0-0.2); Platelet Count 487 K/mm3 (150-400); RDW Coefficient Variation 15.8 % (11.7-14.2); RDW Standard Deviation 50.6 fL (35.1-46.3); Red Blood Cell Count 2.84 M/mm3 (3.80-5.20); White Blood Cell Count 8.04 K/mm3 (4.00-11.30)
[2020-11-26 06:46] LABS: Anion Gap 2 mmol/L (6-16); Blood Urea Nitrogen 9 mg/dL (8-24); Bun/Creatinine Ratio 18.4 (12.0-20.0); CO2, Blood 26 mmol/L (21-32); Calcium, Blood 8.1 mg/dL (8.5-10.1); Chloride, Blood 114 mmol/L (98-108); Creatinine, Blood 0.49 mg/dL (0.40-1.00); Glomerular Filtration Rate >60 (60-); Glucose, Blood 117 mg/dL (70-99); Phosphorus, Blood 2.8 mg/dL (2.5-4.9); Potassium, Blood 3.9 mmol/L (3.5-5.5); Sodium, Blood 142 mmol/L (136-145)
[2020-11-26 14:28] LABS: Tobramycin, Trough 1.3 ug/mL (0.0-1.9)
[2020-11-27 04:54] LABS: BASOPHILS ABSOLUTE AUTO 0.04 K/mm3 (0.00-0.23); BASOPHILS PERCENT AUTO 1 % (0-2); EOSINOPHILS ABSOLUTE AUTO 0.19 K/mm3 (0.00-0.68); EOSINOPHILS PERCENT AUTO 3 % (0-6); Hematocrit 25.1 % (33.0-51.0); Hemoglobin 8.2 g/dL (11.5-16.0); IMMATURE GRAN ABSOLUTE AUTO 0.16 K/mm3 (0.00-0.10); IMMATURE GRAN PERCENT AUTO 2 % (0-1); LYMPHOCYTES ABSOLUTE AUTO 1.19 K/mm3 (0.84-5.20); LYMPHOCYTES PERCENT AUTO 18 % (21-46); MONOCYTES ABSOLUTE AUTO 0.69 K/mm3 (0.16-1.47); MONOCYTES PERCENT AUTO 10 % (4-13); Mean Corpuscular HGB 29.5 pg (26.0-34.0); Mean Corpuscular HGB Conc 32.7 g/dL (31.5-36.5); Mean Corpuscular Volume 90 fL (80-100); Mean Platelet Volume 10.2 fL (9.1-12.4); NEUTROPHILS ABSOLUTE AUTO 4.52 K/mm3 (1.96-9.15); NEUTROPHILS PERCENT AUTO 67 % (41-73); NRBC ABSOLUTE 0.02 K/mm3 (0.00-0.02); NRBC Auto 0.3 /100 WBC (0.0-0.2); Platelet Count 496 K/mm3 (150-400); RDW Coefficient Variation 15.9 % (11.7-14.2); RDW Standard Deviation 51.7 fL (35.1-46.3); Red Blood Cell Count 2.78 M/mm3 (3.80-5.20); White Blood Cell Count 6.79 K/mm3 (4.00-11.30)
[2020-11-27 05:14] LABS: Anion Gap 2 mmol/L (6-16); Blood Urea Nitrogen 9 mg/dL (8-24); Bun/Creatinine Ratio 17.7 (12.0-20.0); CO2, Blood 29 mmol/L (21-32); Chloride, Blood 112 mmol/L (98-108); Creatinine, Blood 0.51 mg/dL (0.40-1.00); Glomerular Filtration Rate >60 (60-); Glucose, Blood 116 mg/dL (70-99); Potassium, Blood 3.5 mmol/L (3.5-5.5); Sodium, Blood 143 mmol/L (136-145)
[2020-11-28 13:25] LABS: Tobramycin, Trough 0.4 ug/mL (0.0-1.9)
[2020-11-29 03:58] LABS: BASOPHILS ABSOLUTE AUTO 0.04 K/mm3 (0.00-0.23); BASOPHILS PERCENT AUTO 1 % (0-2); EOSINOPHILS ABSOLUTE AUTO 0.13 K/mm3 (0.00-0.68); EOSINOPHILS PERCENT AUTO 2 % (0-6); Hematocrit 24.7 % (33.0-51.0); Hemoglobin 8.1 g/dL (11.5-16.0); IMMATURE GRAN ABSOLUTE AUTO 0.08 K/mm3 (0.00-0.10); IMMATURE GRAN PERCENT AUTO 1 % (0-1); LYMPHOCYTES ABSOLUTE AUTO 1.17 K/mm3 (0.84-5.20); LYMPHOCYTES PERCENT AUTO 16 % (21-46); MONOCYTES PERCENT AUTO 8 % (4-13); Mean Corpuscular HGB 29.1 pg (26.0-34.0); Mean Corpuscular HGB Conc 32.8 g/dL (31.5-36.5); Mean Corpuscular Volume 89 fL (80-100); Mean Platelet Volume 9.6 fL (9.1-12.4); NEUTROPHILS ABSOLUTE AUTO 5.47 K/mm3 (1.96-9.15); NEUTROPHILS PERCENT AUTO 73 % (41-73); Platelet Count 587 K/mm3 (150-400); RDW Coefficient Variation 16.2 % (11.7-14.2); RDW Standard Deviation 49.5 fL (35.1-46.3); Red Blood Cell Count 2.78 M/mm3 (3.80-5.20); White Blood Cell Count 7.49 K/mm3 (4.00-11.30)
[2020-11-29 04:14] LABS: Anion Gap 3 mmol/L (6-16); Blood Urea Nitrogen 8 mg/dL (8-24); Bun/Creatinine Ratio 17.9 (12.0-20.0); CO2, Blood 32 mmol/L (21-32); Calcium, Blood 7.7 mg/dL (8.5-10.1); Chloride, Blood 104 mmol/L (98-108); Creatinine, Blood 0.45 mg/dL (0.40-1.00); Glomerular Filtration Rate >60 (60-); Glucose, Blood 113 mg/dL (70-99); Potassium, Blood 2.8 mmol/L (3.5-5.5); Sodium, Blood 139 mmol/L (136-145)
[2020-11-30 01:18] LABS: BASOPHILS ABSOLUTE AUTO 0.03 K/mm3 (0.00-0.23); BASOPHILS PERCENT AUTO 0 % (0-2); EOSINOPHILS ABSOLUTE AUTO 0.15 K/mm3 (0.00-0.68); EOSINOPHILS PERCENT AUTO 2 % (0-6); Hematocrit 28.7 % (33.0-51.0); Hemoglobin 9.2 g/dL (11.5-16.0); IMMATURE GRAN ABSOLUTE AUTO 0.06 K/mm3 (0.00-0.10); IMMATURE GRAN PERCENT AUTO 1 % (0-1); LYMPHOCYTES ABSOLUTE AUTO 1.11 K/mm3 (0.84-5.20); LYMPHOCYTES PERCENT AUTO 14 % (21-46); MONOCYTES PERCENT AUTO 9 % (4-13); Mean Corpuscular HGB Conc 32.1 g/dL (31.5-36.5); Mean Corpuscular Volume 91 fL (80-100); Mean Platelet Volume 9.3 fL (9.1-12.4); NEUTROPHILS ABSOLUTE AUTO 6.19 K/mm3 (1.96-9.15); NEUTROPHILS PERCENT AUTO 75 % (41-73); Platelet Count 602 K/mm3 (150-400); RDW Coefficient Variation 16.4 % (11.7-14.2); RDW Standard Deviation 52.4 fL (35.1-46.3); Red Blood Cell Count 3.17 M/mm3 (3.80-5.20); White Blood Cell Count 8.24 K/mm3 (4.00-11.30)
[2020-11-30 01:40] LABS: Anion Gap 2 mmol/L (6-16); Blood Urea Nitrogen 4 mg/dL (8-24); Bun/Creatinine Ratio 9.7 (12.0-20.0); CO2, Blood 35 mmol/L (21-32); Calcium, Blood 8.1 mg/dL (8.5-10.1); Chloride, Blood 103 mmol/L (98-108); Creatinine, Blood 0.41 mg/dL (0.40-1.00); Glomerular Filtration Rate >60 (60-); Glucose, Blood 96 mg/dL (70-99); Sodium, Blood 140 mmol/L (136-145)
[2020-11-30 01:42] LABS: Creatinine, Blood 0.42 mg/dL (0.40-1.00); Tobramycin, Trough <0.3 ug/mL (0.0-1.9)
[2020-11-30 04:46] LABS: PCO2 Arterial > 105 mmHg (35-45); PO2 Arterial 290 mmHg (80-100); pH Blood Arterial 7.13 (7.35-7.45)
[2020-11-30 09:10] LABS: Base Excess Venous 15.6 mmol/L; Bicarbonate Venous 37.4 mmol/L (24.0-30.0); PCO2 Venous 55.6 mmHg (38-42); PO2 Venous 51.1 mmHg (38-42); pH Blood Venous 7.46 (7.34-7.37)
[2020-12-01 04:24] LABS: BASOPHILS ABSOLUTE AUTO 0.05 K/mm3 (0.00-0.23); BASOPHILS PERCENT AUTO 1 % (0-2); EOSINOPHILS ABSOLUTE AUTO 0.03 K/mm3 (0.00-0.68); EOSINOPHILS PERCENT AUTO 0 % (0-6); Hemoglobin 8.2 g/dL (11.5-16.0); IMMATURE GRAN ABSOLUTE AUTO 0.04 K/mm3 (0.00-0.10); IMMATURE GRAN PERCENT AUTO 1 % (0-1); LYMPHOCYTES ABSOLUTE AUTO 1.27 K/mm3 (0.84-5.20); LYMPHOCYTES PERCENT AUTO 18 % (21-46); MONOCYTES ABSOLUTE AUTO 0.66 K/mm3 (0.16-1.47); MONOCYTES PERCENT AUTO 9 % (4-13); Mean Corpuscular HGB 28.7 pg (26.0-34.0); Mean Corpuscular HGB Conc 30.4 g/dL (31.5-36.5); Mean Corpuscular Volume 94 fL (80-100); Mean Platelet Volume 9.4 fL (9.1-12.4); NEUTROPHILS ABSOLUTE AUTO 5.15 K/mm3 (1.96-9.15); NEUTROPHILS PERCENT AUTO 72 % (41-73); Platelet Count 577 K/mm3 (150-400); RDW Coefficient Variation 16.6 % (11.7-14.2); RDW Standard Deviation 55.7 fL (35.1-46.3); Red Blood Cell Count 2.86 M/mm3 (3.80-5.20)
[2020-12-01 04:56] LABS: Anion Gap 4 mmol/L (6-16); Blood Urea Nitrogen 6 mg/dL (8-24); Bun/Creatinine Ratio 16.5 (12.0-20.0); CO2, Blood 36 mmol/L (21-32); Calcium, Blood 8.4 mg/dL (8.5-10.1); Chloride, Blood 100 mmol/L (98-108); Creatinine, Blood 0.36 mg/dL (0.40-1.00); Glomerular Filtration Rate >60 (60-); Glucose, Blood 66 mg/dL (70-99); Potassium, Blood 3.3 mmol/L (3.5-5.5); Sodium, Blood 140 mmol/L (136-145)
[2020-12-02 03:09] LABS: BASOPHILS ABSOLUTE AUTO 0.04 K/mm3 (0.00-0.23); BASOPHILS PERCENT AUTO 0 % (0-2); EOSINOPHILS ABSOLUTE AUTO 0.01 K/mm3 (0.00-0.68); EOSINOPHILS PERCENT AUTO 0 % (0-6); Hematocrit 30.7 % (33.0-51.0); Hemoglobin 9.3 g/dL (11.5-16.0); IMMATURE GRAN ABSOLUTE AUTO 0.03 K/mm3 (0.00-0.10); IMMATURE GRAN PERCENT AUTO 0 % (0-1); LYMPHOCYTES ABSOLUTE AUTO 1.14 K/mm3 (0.84-5.20); LYMPHOCYTES PERCENT AUTO 12 % (21-46); MONOCYTES ABSOLUTE AUTO 0.69 K/mm3 (0.16-1.47); MONOCYTES PERCENT AUTO 7 % (4-13); Mean Corpuscular HGB 29.2 pg (26.0-34.0); Mean Corpuscular HGB Conc 30.3 g/dL (31.5-36.5); Mean Corpuscular Volume 97 fL (80-100); Mean Platelet Volume 9.3 fL (9.1-12.4); NEUTROPHILS ABSOLUTE AUTO 7.59 K/mm3 (1.96-9.15); NEUTROPHILS PERCENT AUTO 80 % (41-73); Platelet Count 727 K/mm3 (150-400); RDW Coefficient Variation 16.6 % (11.7-14.2); RDW Standard Deviation 57.9 fL (35.1-46.3); Red Blood Cell Count 3.18 M/mm3 (3.80-5.20)
[2020-12-02 03:25] LABS: Anion Gap 3 mmol/L (6-16); Blood Urea Nitrogen 8 mg/dL (8-24); Bun/Creatinine Ratio 19.6 (12.0-20.0); CO2, Blood 39 mmol/L (21-32); Calcium, Blood 8.8 mg/dL (8.5-10.1); Chloride, Blood 98 mmol/L (98-108); Creatinine, Blood 0.41 mg/dL (0.40-1.00); Glomerular Filtration Rate >60 (60-); Glucose, Blood 110 mg/dL (70-99); Potassium, Blood 3.6 mmol/L (3.5-5.5); Sodium, Blood 140 mmol/L (136-145); Tobramycin, Trough 0.6 ug/mL (0.0-1.9)
[2020-12-03 04:32] LABS: BASOPHILS ABSOLUTE AUTO 0.04 K/mm3 (0.00-0.23); BASOPHILS PERCENT AUTO 1 % (0-2); EOSINOPHILS ABSOLUTE AUTO 0.16 K/mm3 (0.00-0.68); EOSINOPHILS PERCENT AUTO 3 % (0-6); Hematocrit 27.9 % (33.0-51.0); Hemoglobin 8.3 g/dL (11.5-16.0); IMMATURE GRAN ABSOLUTE AUTO 0.02 K/mm3 (0.00-0.10); IMMATURE GRAN PERCENT AUTO 0 % (0-1); LYMPHOCYTES ABSOLUTE AUTO 1.09 K/mm3 (0.84-5.20); LYMPHOCYTES PERCENT AUTO 17 % (21-46); MONOCYTES ABSOLUTE AUTO 0.92 K/mm3 (0.16-1.47); MONOCYTES PERCENT AUTO 15 % (4-13); Mean Corpuscular HGB 28.7 pg (26.0-34.0); Mean Corpuscular HGB Conc 29.7 g/dL (31.5-36.5); Mean Corpuscular Volume 97 fL (80-100); Mean Platelet Volume 9.4 fL (9.1-12.4); NEUTROPHILS ABSOLUTE AUTO 4.06 K/mm3 (1.96-9.15); NEUTROPHILS PERCENT AUTO 65 % (41-73); Platelet Count 529 K/mm3 (150-400); RDW Coefficient Variation 16.6 % (11.7-14.2); RDW Standard Deviation 58.1 fL (35.1-46.3); Red Blood Cell Count 2.89 M/mm3 (3.80-5.20); White Blood Cell Count 6.29 K/mm3 (4.00-11.30)
[2020-12-03 04:52] LABS: Anion Gap 0 mmol/L (6-16); Blood Urea Nitrogen 11 mg/dL (8-24); Bun/Creatinine Ratio 22.2 (12.0-20.0); CO2, Blood 42 mmol/L (21-32); Calcium, Blood 8.6 mg/dL (8.5-10.1); Chloride, Blood 97 mmol/L (98-108); Glomerular Filtration Rate >60 (60-); Glucose, Blood 106 mg/dL (70-99); Potassium, Blood 3.5 mmol/L (3.5-5.5); Sodium, Blood 139 mmol/L (136-145)
[2020-12-03 07:48] LABS: Base Excess Venous 17.9 mmol/L; Bicarbonate Venous 38.6 mmol/L (24.0-30.0); PCO2 Venous 92 mmHg (38-42); PO2 Venous 51.2 mmHg (38-42); pH Blood Venous 7.29 (7.34-7.37)
[2020-12-04 03:51] LABS: BASOPHILS ABSOLUTE AUTO 0.04 K/mm3 (0.00-0.23); BASOPHILS PERCENT AUTO 1 % (0-2); EOSINOPHILS ABSOLUTE AUTO 0.12 K/mm3 (0.00-0.68); EOSINOPHILS PERCENT AUTO 2 % (0-6); Hematocrit 26.3 % (33.0-51.0); Hemoglobin 7.9 g/dL (11.5-16.0); IMMATURE GRAN ABSOLUTE AUTO 0.04 K/mm3 (0.00-0.10); IMMATURE GRAN PERCENT AUTO 1 % (0-1); LYMPHOCYTES ABSOLUTE AUTO 0.98 K/mm3 (0.84-5.20); LYMPHOCYTES PERCENT AUTO 13 % (21-46); MONOCYTES ABSOLUTE AUTO 0.88 K/mm3 (0.16-1.47); MONOCYTES PERCENT AUTO 12 % (4-13); Mean Corpuscular HGB 29.2 pg (26.0-34.0); Mean Corpuscular Volume 97 fL (80-100); Mean Platelet Volume 9.3 fL (9.1-12.4); NEUTROPHILS PERCENT AUTO 73 % (41-73); Platelet Count 502 K/mm3 (150-400); RDW Coefficient Variation 16.6 % (11.7-14.2); RDW Standard Deviation 57.1 fL (35.1-46.3); Red Blood Cell Count 2.71 M/mm3 (3.80-5.20); White Blood Cell Count 7.46 K/mm3 (4.00-11.30)
[2020-12-04 04:09] LABS: Blood Urea Nitrogen 8 mg/dL (8-24); Bun/Creatinine Ratio 18.6 (12.0-20.0); Calcium, Blood 8.1 mg/dL (8.5-10.1); Chloride, Blood 93 mmol/L (98-108); Creatinine, Blood 0.43 mg/dL (0.40-1.00); Glomerular Filtration Rate >60 (60-); Glucose, Blood 104 mg/dL (70-99); Potassium, Blood 3.1 mmol/L (3.5-5.5); Sodium, Blood 140 mmol/L (136-145)
[2020-12-04 04:17] LABS: Anion Gap Unable to Calculate mmol/L (6-16); CO2, Blood >45 mmol/L (21-32)
[2020-12-04 08:05] LABS: Base Excess Venous 25.4 mmol/L; Bicarbonate Venous 46.7 mmol/L (24.0-30.0); PO2 Venous 43.8 mmHg (38-42); pH Blood Venous 7.44 (7.34-7.37)
[2020-12-05 04:32] LABS: BASOPHILS ABSOLUTE AUTO 0.04 K/mm3 (0.00-0.23); BASOPHILS PERCENT AUTO 1 % (0-2); EOSINOPHILS ABSOLUTE AUTO 0.13 K/mm3 (0.00-0.68); EOSINOPHILS PERCENT AUTO 2 % (0-6); Hematocrit 26.3 % (33.0-51.0); IMMATURE GRAN ABSOLUTE AUTO 0.01 K/mm3 (0.00-0.10); IMMATURE GRAN PERCENT AUTO 0 % (0-1); LYMPHOCYTES ABSOLUTE AUTO 1.34 K/mm3 (0.84-5.20); LYMPHOCYTES PERCENT AUTO 19 % (21-46); MONOCYTES ABSOLUTE AUTO 0.87 K/mm3 (0.16-1.47); MONOCYTES PERCENT AUTO 12 % (4-13); Mean Corpuscular HGB 29.2 pg (26.0-34.0); Mean Corpuscular HGB Conc 30.4 g/dL (31.5-36.5); Mean Corpuscular Volume 96 fL (80-100); Mean Platelet Volume 9.3 fL (9.1-12.4); NEUTROPHILS ABSOLUTE AUTO 4.72 K/mm3 (1.96-9.15); NEUTROPHILS PERCENT AUTO 67 % (41-73); Platelet Count 509 K/mm3 (150-400); RDW Coefficient Variation 16.6 % (11.7-14.2); RDW Standard Deviation 57.8 fL (35.1-46.3); Red Blood Cell Count 2.74 M/mm3 (3.80-5.20); White Blood Cell Count 7.11 K/mm3 (4.00-11.30)
[2020-12-05 04:47] LABS: Blood Urea Nitrogen 8 mg/dL (8-24); Bun/Creatinine Ratio 20.3 (12.0-20.0); Calcium, Blood 8.3 mg/dL (8.5-10.1); Chloride, Blood 93 mmol/L (98-108); Glomerular Filtration Rate >60 (60-); Glucose, Blood 100 mg/dL (70-99); Potassium, Blood 3.4 mmol/L (3.5-5.5); Sodium, Blood 139 mmol/L (136-145)
[2020-12-05 04:53] LABS: Anion Gap Unable to Calculate mmol/L (6-16); CO2, Blood >45 mmol/L (21-32)
[2020-12-06 03:44] LABS: BASOPHILS ABSOLUTE AUTO 0.04 K/mm3 (0.00-0.23); BASOPHILS PERCENT AUTO 1 % (0-2); EOSINOPHILS ABSOLUTE AUTO 0.12 K/mm3 (0.00-0.68); EOSINOPHILS PERCENT AUTO 2 % (0-6); Hemoglobin 7.8 g/dL (11.5-16.0); IMMATURE GRAN ABSOLUTE AUTO 0.01 K/mm3 (0.00-0.10); IMMATURE GRAN PERCENT AUTO 0 % (0-1); LYMPHOCYTES ABSOLUTE AUTO 1.45 K/mm3 (0.84-5.20); LYMPHOCYTES PERCENT AUTO 19 % (21-46); MONOCYTES ABSOLUTE AUTO 0.83 K/mm3 (0.16-1.47); MONOCYTES PERCENT AUTO 11 % (4-13); Mean Corpuscular HGB 28.7 pg (26.0-34.0); Mean Corpuscular Volume 96 fL (80-100); Mean Platelet Volume 9.5 fL (9.1-12.4); NEUTROPHILS ABSOLUTE AUTO 5.18 K/mm3 (1.96-9.15); NEUTROPHILS PERCENT AUTO 68 % (41-73); Platelet Count 504 K/mm3 (150-400); RDW Coefficient Variation 16.5 % (11.7-14.2); RDW Standard Deviation 57.7 fL (35.1-46.3); Red Blood Cell Count 2.72 M/mm3 (3.80-5.20); White Blood Cell Count 7.63 K/mm3 (4.00-11.30)
[2020-12-06 03:59] LABS: Blood Urea Nitrogen 8 mg/dL (8-24); Bun/Creatinine Ratio 19.8 (12.0-20.0); Calcium, Blood 8.4 mg/dL (8.5-10.1); Chloride, Blood 92 mmol/L (98-108); Glomerular Filtration Rate >60 (60-); Glucose, Blood 93 mg/dL (70-99); Potassium, Blood 3.8 mmol/L (3.5-5.5); Sodium, Blood 137 mmol/L (136-145)
[2020-12-06 04:15] LABS: Anion Gap Unable to Calculate mmol/L (6-16); CO2, Blood >45 mmol/L (21-32)
[2020-12-07 03:45] LABS: BASOPHILS ABSOLUTE AUTO 0.05 K/mm3 (0.00-0.23); BASOPHILS PERCENT AUTO 1 % (0-2); EOSINOPHILS ABSOLUTE AUTO 0.15 K/mm3 (0.00-0.68); EOSINOPHILS PERCENT AUTO 2 % (0-6); Hematocrit 29.1 % (33.0-51.0); Hemoglobin 8.8 g/dL (11.5-16.0); IMMATURE GRAN ABSOLUTE AUTO 0.02 K/mm3 (0.00-0.10); IMMATURE GRAN PERCENT AUTO 0 % (0-1); LYMPHOCYTES ABSOLUTE AUTO 1.61 K/mm3 (0.84-5.20); LYMPHOCYTES PERCENT AUTO 22 % (21-46); MONOCYTES ABSOLUTE AUTO 0.93 K/mm3 (0.16-1.47); MONOCYTES PERCENT AUTO 13 % (4-13); Mean Corpuscular HGB 28.9 pg (26.0-34.0); Mean Corpuscular HGB Conc 30.2 g/dL (31.5-36.5); Mean Corpuscular Volume 95 fL (80-100); Mean Platelet Volume 9.6 fL (9.1-12.4); NEUTROPHILS ABSOLUTE AUTO 4.52 K/mm3 (1.96-9.15); NEUTROPHILS PERCENT AUTO 62 % (41-73); Platelet Count 559 K/mm3 (150-400); RDW Coefficient Variation 16.5 % (11.7-14.2); RDW Standard Deviation 57.1 fL (35.1-46.3); Red Blood Cell Count 3.05 M/mm3 (3.80-5.20); White Blood Cell Count 7.28 K/mm3 (4.00-11.30)
[2020-12-07 04:05] LABS: Blood Urea Nitrogen 8 mg/dL (8-24); Bun/Creatinine Ratio 18.2 (12.0-20.0); Calcium, Blood 8.7 mg/dL (8.5-10.1); Chloride, Blood 94 mmol/L (98-108); Creatinine, Blood 0.44 mg/dL (0.40-1.00); Glomerular Filtration Rate >60 (60-); Glucose, Blood 99 mg/dL (70-99); Potassium, Blood 4.1 mmol/L (3.5-5.5); Sodium, Blood 138 mmol/L (136-145)
[2020-12-07 05:14] LABS: Anion Gap Unable to Calculate mmol/L (6-16); CO2, Blood >45 mmol/L (21-32)
[2020-12-07] MEDS ORDERED: ALBU2.5V5 INH ×2 (10:41)
[2020-12-07] MEDS ORDERED: CEFD300 PO ×2 (10:42)
[2020-12-07] MEDS ORDERED: IPRAT-ALBUT 0.5-3 ML INH ×2 (10:44)
[2020-12-07] MEDS ORDERED: METO25 PO ×2 (10:45)
[2020-12-07] MEDS ORDERED: NICO21TP TOP ×2 (10:49)
[2020-12-07] MEDS ORDERED: METR500 PO ×2 (10:49)
[2020-12-07] MEDS ORDERED: LACT PO ×2 (10:50)
[2020-12-07 11:08] LABS: SARS-Cov-2 (COVID-19) PCR, MMC NEGATIVE (NEGATIVE)
== END 2020-12-07 14:05 | DRG 870 ==
LOC: ER 19:30 → PCU 23:33
PROVIDERS: Emergency Medicine; Family Medicine; Hospitalist; Internal Medicine; Internal Medicine Critical Care Medicine; Pharmacist; Student in an Organized Health Care Education/Training Program; ADMIT Internal Medicine
PROC: 3E033XZ Introduction of Vasopressor into Peripheral Vein, Percutaneous Approach (ICD-10-PCS; 2020-11-20)
PROC: 5A1955Z Respiratory Ventilation, Greater than 96 Consecutive Hours (ICD-10-PCS; principal; 2020-11-21)
PROC: 0BH18EZ Insertion of Endotracheal Airway into Trachea, Via Natural or Artificial Opening Endoscopic (ICD-10-PCS; 2020-11-21)
PROC: 02HV33Z Insertion of Infusion Device into Superior Vena Cava, Percutaneous Approach (ICD-10-PCS; 2020-11-21)
PROC: 30233N1 Transfusion of Nonautologous Red Blood Cells into Peripheral Vein, Percutaneous Approach (ICD-10-PCS; 2020-11-25)
PROC: 5A09457 Assistance with Respiratory Ventilation, 24-96 Consecutive Hours, Continuous Positive Airway Pressure (ICD-10-PCS; 2020-11-30)
PROC: 5A0945A Assistance with Respiratory Ventilation, 24-96 Consecutive Hours, High Flow/Velocity Cannula (ICD-10-PCS; 2020-12-05)
DX: A41.52 Sepsis due to Pseudomonas (principal); J69.0 Pneumonitis due to inhalation of food and vomit; R65.21 Severe sepsis with septic shock; R57.1 Hypovolemic shock; J15.1 Pneumonia due to Pseudomonas; J85.0 Gangrene and necrosis of lung; J96.21 Acute and chronic respiratory failure with hypoxia; J96.02 Acute respiratory failure with hypercapnia; R64 Cachexia; Z68.1 Body mass index [BMI] 19.9 or less, adult; E44.0 Moderate protein-calorie malnutrition; I47.1 Supraventricular tachycardia; E87.1 Hypo-osmolality and hyponatremia; E87.2 Acidosis; R04.2 Hemoptysis; Z20.822 Contact with and (suspected) exposure to COVID-19; E87.6 Hypokalemia; E83.42 Hypomagnesemia; E88.09 Other disorders of plasma-protein metabolism, not elsewhere classified; F17.210 Nicotine dependence, cigarettes, uncomplicated; J43.9 Emphysema, unspecified; M81.0 Age-related osteoporosis without current pathological fracture; F41.9 Anxiety disorder, unspecified; R45.1 Restlessness and agitation; D63.8 Anemia in other chronic diseases classified elsewhere; F32.9 Major depressive disorder, single episode, unspecified; I10 Essential (primary) hypertension; Z88.0 Allergy status to penicillin; Z88.8 Allergy status to other drugs, medicaments and biological substances; Z91.048 Other nonmedicinal substance allergy status; Z85.118 Personal history of other malignant neoplasm of bronchus and lung; Z90.2 Acquired absence of lung [part of]; Z98.51 Tubal ligation status; Z98.890 Other specified postprocedural states; Z92.3 Personal history of irradiation; Z79.899 Other long term (current) drug therapy; Z59.0 Homelessness
CPT/HCPCS: 31500; 31720; 36415; 36430; 36600; 71045; 80048; 80053; 80200; 81001; 82330; 82565; 82803; 82947; 83605; 83735; 83880; 84100; 84132; 84145; 84439; 84443; 84484; 85025; 86850; 86900; 86901; 86923; 87040; 87070; 87077; 87086; 87186; 87205; 92526; 92610; 93005; 93010; 93308; 94002; 94003; 94640; 94660; 94667; 94668; 94762; 96361; 96374; 96375; 97110; 97162; 97166; 97530; 99285-25; A9270; C9113; J0282; J0360; J0692; J0696; J0713; J0714; J0834; J1650; J2060; J2405; J2704; J3010; J3260; J3475; J3480; J7030; J7040; J7050; J7060; J7120; P9016; P9046; U0004

== ENCOUNTER 2020-12-08 20:05 | Emergency (ER) | payer MEDICARE, OTHER ==
[~2020-12-08] VITALS: Ht 165.1 cm; Wt 54.4 kg
[~2020-12-08 20:05] MED LIST changes: +ALBU2.5V5 INH; +CEFD300 PO; +IPRAT-ALBUT 0.5-3 ML INH; +LACT PO; +METO25 PO; +METR500 PO; +NICO21TP TOP
[2020-12-08 21:24] LABS: BASOPHILS ABSOLUTE AUTO 0.05 K/mm3 (0.00-0.23); BASOPHILS PERCENT AUTO 1 % (0-2); EOSINOPHILS ABSOLUTE AUTO 0.03 K/mm3 (0.00-0.68); EOSINOPHILS PERCENT AUTO 0 % (0-6); Hematocrit 31.2 % (33.0-51.0); Hemoglobin 9.4 g/dL (11.5-16.0); IMMATURE GRAN ABSOLUTE AUTO 0.04 K/mm3 (0.00-0.10); IMMATURE GRAN PERCENT AUTO 0 % (0-1); LYMPHOCYTES ABSOLUTE AUTO 0.72 K/mm3 (0.84-5.20); LYMPHOCYTES PERCENT AUTO 7 % (21-46); MONOCYTES PERCENT AUTO 10 % (4-13); Mean Corpuscular HGB 28.2 pg (26.0-34.0); Mean Corpuscular HGB Conc 30.1 g/dL (31.5-36.5); Mean Corpuscular Volume 94 fL (80-100); Mean Platelet Volume 9.6 fL (9.1-12.4); NEUTROPHILS ABSOLUTE AUTO 9.03 K/mm3 (1.96-9.15); NEUTROPHILS PERCENT AUTO 82 % (41-73); Platelet Count 523 K/mm3 (150-400); RDW Coefficient Variation 16.4 % (11.7-14.2); RDW Standard Deviation 55.3 fL (35.1-46.3); Red Blood Cell Count 3.33 M/mm3 (3.80-5.20); White Blood Cell Count 10.97 K/mm3 (4.00-11.30)
[2020-12-08 21:45] LABS: Alanine Aminotransfer (ALT/SGP 16 U/L (12-78); Albumin, Blood 2.4 g/dL (3.4-5.0); Albumin/Globulin Ratio 0.6 (0.8-1.8); Alk Phos 75 U/L (50-136); Anion Gap 3 mmol/L (6-16); Aspartate Aminotrans (AST/SGOT 14 U/L (12-37); Bilirubin, Total 0.4 mg/dL (0.1-1.0); Blood Urea Nitrogen 8 mg/dL (8-24); Bun/Creatinine Ratio 16.6 (12.0-20.0); CO2, Blood 42 mmol/L (21-32); Chloride, Blood 93 mmol/L (98-108); Creatinine, Blood 0.48 mg/dL (0.40-1.00); Globulin, Blood 4.3 g/dL (2.2-4.0); Glomerular Filtration Rate >60 (60-); Glucose, Blood 122 mg/dL (70-99); Sodium, Blood 138 mmol/L (136-145); Total Protein, Blood 6.7 g/dL (6.4-8.2); Troponin I <0.015 ng/mL (0.000-0.040)
== END 2020-12-08 23:04 | disposition home or self-care (01) ==
LOC: ER 20:05
PROVIDERS: Emergency Medicine
DX: J44.1 Chronic obstructive pulmonary disease with (acute) exacerbation (principal); Z87.891 Personal history of nicotine dependence; Z88.0 Allergy status to penicillin; Z91.048 Other nonmedicinal substance allergy status
CPT/HCPCS: 36415; 71045; 80053; 83880; 84484; 85025; 93005; 93010; 94640; 99285-25

== ENCOUNTER 2020-12-22 15:43 | Inpatient (IN) | payer MEDICARE, OTHER ==
[~2020-12-22] VITALS: Ht 165.1 cm; Wt 45.0 kg
[~2020-12-22 15:43] MED LIST changes: -Buspirone HCl7.5 MG PO
[2020-12-22 17:14] LABS: BASOPHILS ABSOLUTE AUTO 0.05 K/mm3 (0.00-0.23); BASOPHILS PERCENT AUTO 0 % (0-2); EOSINOPHILS ABSOLUTE AUTO 0.24 K/mm3 (0.00-0.68); EOSINOPHILS PERCENT AUTO 2 % (0-6); Hematocrit 26.8 % (33.0-51.0); Hemoglobin 8.5 g/dL (11.5-16.0); IMMATURE GRAN ABSOLUTE AUTO 0.06 K/mm3 (0.00-0.10); IMMATURE GRAN PERCENT AUTO 1 % (0-1); LYMPHOCYTES ABSOLUTE AUTO 1.59 K/mm3 (0.84-5.20); LYMPHOCYTES PERCENT AUTO 13 % (21-46); MONOCYTES ABSOLUTE AUTO 1.23 K/mm3 (0.16-1.47); MONOCYTES PERCENT AUTO 10 % (4-13); Mean Corpuscular HGB 28.6 pg (26.0-34.0); Mean Corpuscular HGB Conc 31.7 g/dL (31.5-36.5); Mean Corpuscular Volume 90 fL (80-100); Mean Platelet Volume 9.1 fL (9.1-12.4); NEUTROPHILS ABSOLUTE AUTO 8.91 K/mm3 (1.96-9.15); NEUTROPHILS PERCENT AUTO 74 % (41-73); Platelet Count 767 K/mm3 (150-400); RDW Coefficient Variation 15.6 % (11.7-14.2); RDW Standard Deviation 51.1 fL (35.1-46.3); Red Blood Cell Count 2.97 M/mm3 (3.80-5.20); White Blood Cell Count 12.08 K/mm3 (4.00-11.30)
[2020-12-22 17:49] LABS: Alanine Aminotransfer (ALT/SGP 20 U/L (12-78); Albumin, Blood 2.1 g/dL (3.4-5.0); Albumin/Globulin Ratio 0.4 (0.8-1.8); Alk Phos 68 U/L (50-136); Anion Gap 3 mmol/L (6-16); Aspartate Aminotrans (AST/SGOT 20 U/L (12-37); Bilirubin, Total 0.3 mg/dL (0.1-1.0); Blood Urea Nitrogen 14 mg/dL (8-24); Bun/Creatinine Ratio 28.7 (12.0-20.0); CO2, Blood 31 mmol/L (21-32); Calcium, Blood 9.2 mg/dL (8.5-10.1); Chloride, Blood 96 mmol/L (98-108); Creatinine, Blood 0.49 mg/dL (0.40-1.00); Globulin, Blood 5.2 g/dL (2.2-4.0); Glomerular Filtration Rate >60 (60-); Glucose, Blood 95 mg/dL (70-99); Magnesium, Blood 1.9 mg/dL (1.6-2.4); Potassium, Blood 4.9 mmol/L (3.5-5.5); Sodium, Blood 130 mmol/L (136-145); Total Protein, Blood 7.3 g/dL (6.4-8.2); Troponin I <0.015 ng/mL (0.000-0.040)
[2020-12-22 22:40] LABS: SARS-Cov-2 (COVID-19) PCR, MMC NEGATIVE (NEGATIVE)
--- NOTE | 2020-12-23 01:22 | NUR ---
ADMISSION [id number] REPORT RECEIVED FROM SHAKIRA BIGGS. PT TO BE ADMITTED INTO ICU-6. 2315 PT ADMITTED INTO ICU-6. PT ALERT AND ORIENTED X 4. PT ON 2L NC. NO ACUTE DISTRESS NOTED. SEE ADMISSION ASSESSMENT. 2330- 16FR URINARY CATHETER PLACED, PT TOLERATED WELL.
[2020-12-23 03:35] LABS: BASOPHILS ABSOLUTE AUTO 0.05 K/mm3 (0.00-0.23); BASOPHILS PERCENT AUTO 1 % (0-2); EOSINOPHILS ABSOLUTE AUTO 0.22 K/mm3 (0.00-0.68); EOSINOPHILS PERCENT AUTO 3 % (0-6); Hematocrit 24.8 % (33.0-51.0); Hemoglobin 7.6 g/dL (11.5-16.0); IMMATURE GRAN ABSOLUTE AUTO 0.02 K/mm3 (0.00-0.10); IMMATURE GRAN PERCENT AUTO 0 % (0-1); LYMPHOCYTES ABSOLUTE AUTO 1.51 K/mm3 (0.84-5.20); LYMPHOCYTES PERCENT AUTO 21 % (21-46); MONOCYTES ABSOLUTE AUTO 0.88 K/mm3 (0.16-1.47); MONOCYTES PERCENT AUTO 12 % (4-13); Mean Corpuscular HGB Conc 30.6 g/dL (31.5-36.5); Mean Corpuscular Volume 92 fL (80-100); Mean Platelet Volume 8.9 fL (9.1-12.4); NEUTROPHILS ABSOLUTE AUTO 4.42 K/mm3 (1.96-9.15); NEUTROPHILS PERCENT AUTO 62 % (41-73); Platelet Count 693 K/mm3 (150-400); RDW Coefficient Variation 15.7 % (11.7-14.2); Red Blood Cell Count 2.71 M/mm3 (3.80-5.20)
[2020-12-23 03:50] LABS: Anion Gap 4 mmol/L (6-16); Blood Urea Nitrogen 10 mg/dL (8-24); Bun/Creatinine Ratio 19.9 (12.0-20.0); CO2, Blood 28 mmol/L (21-32); Calcium, Blood 8.6 mg/dL (8.5-10.1); Chloride, Blood 102 mmol/L (98-108); Glomerular Filtration Rate >60 (60-); Glucose, Blood 86 mg/dL (70-99); Potassium, Blood 4.8 mmol/L (3.5-5.5); Sodium, Blood 134 mmol/L (136-145)
--- NOTE | 2020-12-23 06:33 | NUR ---
SHIFT SUMMARY PT IN BED, RESTING. PT DENIES ANY PAIN OR DISTRESS. PT REMAINS ON 2L NC. PT NSR, LEVOPHED DID NOT NEED TO BE INFUSED MAP ARE ABOVE 65. PT REMAINS WITH PRODUCTIVE COUGH AND ON DROPLET PRECAUTIONS. NS @ 100ML/HR INFUSING WELL ANTIBIOTICS INTERMITTENTLY. NO ACUTE EVENTS OVERNIGHT. REPORT TO BE GIVEN TO DAY SHIFT RN.
--- NOTE | 2020-12-23 11:50 | NUR ---
[id number]: ASSUMED PT CARE THIS AM. PT A/OX4, COOPERATIVE, MOVES ALL EXTREMITIES. PT CACHETIC, GEN WEAKNESS. PT DENIES PAIN AT THIS TIME, STATES SHE FEELS SOME IMPROVEMENT IN RESP STATUS. PT ON 2 L NC, SATS 95% AND GREATER. PT WITH BLOOD TINGE SPUTUM. SPUTUM SAMPLE AND MRSA SAMPLE SENT. DISCUSSED WITH PT ON NS @ 200, HOWEVER NORMOTENSIVE AND TOLERAING PO INTAKE WITHOUT DIFFICULTY, PT ALSO HAS FC BUT ABLE TO TRANSFER TO BSC WITH 1 PERSON ASSIST. ORDER OBTAINED TO DC FC AND DC NS@ 200ML/HR. PLAN FOR PT TO TRANSFER TO MEDICAL FLOOR TODAY WITHOUT TELE.
--- NOTE | 2020-12-23 16:04 | NUR ---
AT 1530 PT TRANSFER TO MEDICAL FLOOR FROM ICU VIA WHEELCHAIR.PT IS AO X 4,PT HAVE A RASH ON HER BUTT,PT IS VERY THIN,SKIN IS FRAGILE,PT HAVE GENERALIZE WEAKNESS,PT HAVE A BUMP ON RIGHT FOREHEAD,PT IS ON DROPLET PRECAUTIONS,PT HAVE WET COUGH,PT IN BED,BED ALARM ON,CALL LIGHT IN REACH WILL CONTINUE TO MONITOR.
[2020-12-23 21:20] LABS: Vancomycin, Trough 13.1 ug/mL (5.0-10.0)
[2020-12-24 04:51] LABS: BASOPHILS ABSOLUTE AUTO 0.05 K/mm3 (0.00-0.23); BASOPHILS PERCENT AUTO 1 % (0-2); EOSINOPHILS ABSOLUTE AUTO 0.32 K/mm3 (0.00-0.68); EOSINOPHILS PERCENT AUTO 5 % (0-6); Hematocrit 26.4 % (33.0-51.0); Hemoglobin 8.1 g/dL (11.5-16.0); IMMATURE GRAN ABSOLUTE AUTO 0.02 K/mm3 (0.00-0.10); IMMATURE GRAN PERCENT AUTO 0 % (0-1); LYMPHOCYTES ABSOLUTE AUTO 1.13 K/mm3 (0.84-5.20); LYMPHOCYTES PERCENT AUTO 16 % (21-46); MONOCYTES ABSOLUTE AUTO 0.86 K/mm3 (0.16-1.47); MONOCYTES PERCENT AUTO 12 % (4-13); Mean Corpuscular HGB 27.6 pg (26.0-34.0); Mean Corpuscular HGB Conc 30.7 g/dL (31.5-36.5); Mean Corpuscular Volume 90 fL (80-100); Mean Platelet Volume 9.1 fL (9.1-12.4); NEUTROPHILS PERCENT AUTO 67 % (41-73); Platelet Count 764 K/mm3 (150-400); RDW Coefficient Variation 15.5 % (11.7-14.2); RDW Standard Deviation 50.6 fL (35.1-46.3); Red Blood Cell Count 2.94 M/mm3 (3.80-5.20); White Blood Cell Count 7.18 K/mm3 (4.00-11.30)
--- NOTE | 2020-12-24 05:09 | NUR ---
FLIGHT ATTENDANT SUMMARY PT A/O X4, SLEPT WELL TONIGHT. ON 2L O2 VIA NC, BASELINE FOR PT. HX OF LUNG CANCER AND LEFT PARTIAL LOBETOMY. DENIES PAIN. VITALS STABLE. NO ACUTE CHANGES. CALL LIGHT WITHIN REACH, BED ALARM ON, WILL CONTINUE TO MONITOR.
[2020-12-24 05:12] LABS: Anion Gap 5 mmol/L (6-16); Blood Urea Nitrogen 12 mg/dL (8-24); Bun/Creatinine Ratio 23.6 (12.0-20.0); CO2, Blood 29 mmol/L (21-32); Chloride, Blood 102 mmol/L (98-108); Creatinine, Blood 0.51 mg/dL (0.40-1.00); Glomerular Filtration Rate >60 (60-); Glucose, Blood 87 mg/dL (70-99); Sodium, Blood 136 mmol/L (136-145)
[2020-12-24 05:13] LABS: Tobramycin, Random 1.2 ug/mL
--- NOTE | 2020-12-24 18:23 | NUR ---
PT AO ,PT DENIES PAIN, N/V SOB.PT ASSESSMENT REMAINS UNCHANGED,PT HAS NO ACUTE EVENTS T/O.PT IN BED,BED IN LOW POSITON,CALL IN REACH WILL CONTINUE TO MONITOR.
[2020-12-24 21:28] LABS: Vancomycin, Trough 13.4 ug/mL (5.0-10.0)
--- NOTE | 2020-12-25 05:59 | NUR ---
PT RESTING IN BED WITHOUT DISTRESS. RESP UNLABORED. O2 IN PLACE. SOB ON EXERTION. NO CHANGE IN STATUS NOTED. MEDS GIVEN. DENIES PAIN. SAFETY MEASURES IN PLACE.
--- NOTE | 2020-12-25 17:53 | NUR ---
PT AO X 4,PT IN BED,PT HAS NO ACUTE EVENTS T/O SHIFT, PT ASSESSMENT REMAINS UNCHANGED,PT BED ALARM ON,CALL LIGHT IN REACH WILL CONTINUE TO MONITOR.
[2020-12-26 01:22] LABS: Creatinine, Blood 0.55 mg/dL (0.40-1.00); Tobramycin, Random 2.1 ug/mL
--- NOTE | 2020-12-26 04:19 | NUR ---
PT RESTING IN BED. DENIES PAIN. RESP UNLABORED. O2 2L NC IN PLACE. NO CHANGES IN RESP STATUS. OCCASIONAL MOIST NON-PRODUCTIVE COUGH. CALL LIGHT WITHIN REACH. ASSISTED WITH NEEDS. CONTINUE TO MONITOR.
[2020-12-26 05:16] LABS: BASOPHILS ABSOLUTE AUTO 0.05 K/mm3 (0.00-0.23); BASOPHILS PERCENT AUTO 1 % (0-2); EOSINOPHILS ABSOLUTE AUTO 0.27 K/mm3 (0.00-0.68); EOSINOPHILS PERCENT AUTO 3 % (0-6); Hemoglobin 8.7 g/dL (11.5-16.0); IMMATURE GRAN ABSOLUTE AUTO 0.04 K/mm3 (0.00-0.10); IMMATURE GRAN PERCENT AUTO 1 % (0-1); LYMPHOCYTES ABSOLUTE AUTO 1.45 K/mm3 (0.84-5.20); LYMPHOCYTES PERCENT AUTO 18 % (21-46); MONOCYTES ABSOLUTE AUTO 1.04 K/mm3 (0.16-1.47); MONOCYTES PERCENT AUTO 13 % (4-13); Mean Corpuscular HGB 27.6 pg (26.0-34.0); Mean Corpuscular HGB Conc 31.1 g/dL (31.5-36.5); Mean Corpuscular Volume 89 fL (80-100); Mean Platelet Volume 8.8 fL (9.1-12.4); NEUTROPHILS ABSOLUTE AUTO 5.42 K/mm3 (1.96-9.15); NEUTROPHILS PERCENT AUTO 66 % (41-73); Platelet Count 807 K/mm3 (150-400); RDW Coefficient Variation 15.7 % (11.7-14.2); RDW Standard Deviation 51.6 fL (35.1-46.3); Red Blood Cell Count 3.15 M/mm3 (3.80-5.20); White Blood Cell Count 8.27 K/mm3 (4.00-11.30)
[2020-12-26 05:31] LABS: Anion Gap 2 mmol/L (6-16); Blood Urea Nitrogen 19 mg/dL (8-24); Bun/Creatinine Ratio 37.5 (12.0-20.0); CO2, Blood 33 mmol/L (21-32); Calcium, Blood 9.5 mg/dL (8.5-10.1); Chloride, Blood 98 mmol/L (98-108); Creatinine, Blood 0.51 mg/dL (0.40-1.00); Glomerular Filtration Rate >60 (60-); Glucose, Blood 100 mg/dL (70-99); Potassium, Blood 4.9 mmol/L (3.5-5.5); Sodium, Blood 133 mmol/L (136-145)
[2020-12-26 10:14] LABS: Vancomycin, Trough 20.7 ug/mL (5.0-10.0)
--- NOTE | 2020-12-26 18:27 | NUR ---
PT AO,PT HAS NO ACUTE CHANGES T/O SHIFT,PT ASSESSMENT REMAIN UNCHANGES,PT ON 2L SATS IN 90S.PT IN BED,BED IN LOW POSITON,BED ALARM ON, CALL LIGHT IN REACH WILL CONTINUE TO MONITOR.
--- NOTE | 2020-12-27 01:02 | NUR ---
VEW SCORE 5. SALINE BOLUS GIVEN PER ORDER. VS REPEATED. VEW SCORE 2. PT RESTING IN BED. SHE DENIES CHEST PAIN OR PALPITATION. NO CHANGE IN CONDITION NOTED.
--- NOTE | 2020-12-27 04:59 | NUR ---
PT RESTING IN BED WITHOUT DISTRESS. SHE DENIES CHEST PAIN OR FEELINGS OF PALPITATION. VEW SCORE 4. REASSESSED PT. NO CHANGE IN STATUS NOTED. JAVA DEVELOPMENT TEAM LEAD MARIA VICTORIA MADE AWARE OF VEW SCORE PER PROTOCOL. O2 2L VIA NC IN PLACE. RESTING IN BED COMFORTABLY. WILL CONTINUE TO MONITOR.
--- NOTE | 2020-12-28 04:38 | NUR ---
SHIFT SUMMARY PT AAOX4. DENIES PAIN, NO DISTRESS NOTED. VS STABLE. PT ABLE TO MAKE NEEDS KNOWN. CALL LIGHT WITHIN REACH. NO SIGNIFICANT CHANGES DURING THIS SHIFT. PT RESTING IN BED AT THIS TIME.
[2020-12-28 05:21] LABS: Hematocrit 28.8 % (33.0-51.0); Mean Corpuscular HGB 27.7 pg (26.0-34.0); Mean Corpuscular HGB Conc 31.3 g/dL (31.5-36.5); Mean Corpuscular Volume 89 fL (80-100); Mean Platelet Volume 8.9 fL (9.1-12.4); Platelet Count 845 K/mm3 (150-400); RDW Coefficient Variation 15.9 % (11.7-14.2); RDW Standard Deviation 51.6 fL (35.1-46.3); Red Blood Cell Count 3.25 M/mm3 (3.80-5.20); White Blood Cell Count 9.28 K/mm3 (4.00-11.30)
[2020-12-28 06:16] LABS: Albumin, Blood 2.2 g/dL (3.4-5.0); Anion Gap 5 mmol/L (6-16); Blood Urea Nitrogen 24 mg/dL (8-24); Bun/Creatinine Ratio 38.2 (12.0-20.0); CO2, Blood 31 mmol/L (21-32); Calcium, Blood 9.3 mg/dL (8.5-10.1); Chloride, Blood 96 mmol/L (98-108); Creatinine, Blood 0.63 mg/dL (0.40-1.00); Ferritin, Serum 155 ng/mL (8-252); Glomerular Filtration Rate >60 (60-); Glucose, Blood 99 mg/dL (70-99); Iron Serum 28 ug/dL (50-170); Percent Saturation 12.3 % (15.0-50.0); Phosphorus, Blood 4.9 mg/dL (2.5-4.9); Potassium, Blood 4.8 mmol/L (3.5-5.5); Sodium, Blood 132 mmol/L (136-145); Total Iron Binding Capacity 228 ug/dL (250-450)
--- NOTE | 2020-12-28 18:22 | NUR ---
PT AO,PT DENIES PAIN,N/V,SOB,PT HAS NO ACUTE EVENT T/O SHIFT,PT ASSESSMENT REMAINS UNCHANGED.PT IN BED,CALL LIGHT IN REACH WILL CONTINUE TO MONITOR.
[2020-12-29 00:37] LABS: Tobramycin, Random 1.8 ug/mL
[2020-12-29 03:08] LABS: HIV SCREEN 4TH GENERATION WRFX Non Reactive (Non Reactive)
--- NOTE | 2020-12-29 16:56 | NUR ---
ALERT. ORIENTED. AWARE NEEDS POWERGLIDE FOR 4 WEEKS ANTIBIOTICS. PICKET LABOR UNION AWARE. HAD SLIGHT HEADACHE THIS AM AND WAS GIVEN TRAMADOL WITH GOOD RESULTS. NO C/O; C.P OR DISCOMFORT OR SOB. AWARE MAY LEAVE TOMORROW. INDEPENDENT TO BSC THAT IS NEAR FOOT OF BED. COLLIN
--- NOTE | 2020-12-29 17:57 | NUR ---
ADVISED PATIENT WHY SHE IS IN [id number] SHE STS SHE DOES NOT KNOW WHY SHE IS IN ISOLATION.
[2020-12-30 08:49] LABS: BASOPHILS ABSOLUTE AUTO 0.05 K/mm3 (0.00-0.23); BASOPHILS PERCENT AUTO 0 % (0-2); EOSINOPHILS ABSOLUTE AUTO 0.15 K/mm3 (0.00-0.68); EOSINOPHILS PERCENT AUTO 1 % (0-6); Hematocrit 27.8 % (33.0-51.0); Hemoglobin 8.8 g/dL (11.5-16.0); IMMATURE GRAN ABSOLUTE AUTO 0.05 K/mm3 (0.00-0.10); IMMATURE GRAN PERCENT AUTO 0 % (0-1); LYMPHOCYTES ABSOLUTE AUTO 2.39 K/mm3 (0.84-5.20); LYMPHOCYTES PERCENT AUTO 17 % (21-46); MONOCYTES ABSOLUTE AUTO 1.41 K/mm3 (0.16-1.47); MONOCYTES PERCENT AUTO 10 % (4-13); Mean Corpuscular HGB 28.5 pg (26.0-34.0); Mean Corpuscular HGB Conc 31.7 g/dL (31.5-36.5); Mean Corpuscular Volume 90 fL (80-100); Mean Platelet Volume 8.8 fL (9.1-12.4); NEUTROPHILS ABSOLUTE AUTO 9.77 K/mm3 (1.96-9.15); NEUTROPHILS PERCENT AUTO 71 % (41-73); Platelet Count 796 K/mm3 (150-400); RDW Coefficient Variation 15.9 % (11.7-14.2); Red Blood Cell Count 3.09 M/mm3 (3.80-5.20); White Blood Cell Count 13.82 K/mm3 (4.00-11.30)
[2020-12-30 09:08] LABS: Albumin, Blood 2.1 g/dL (3.4-5.0); Anion Gap 5 mmol/L (6-16); Blood Urea Nitrogen 22 mg/dL (8-24); Bun/Creatinine Ratio 45.1 (12.0-20.0); CO2, Blood 29 mmol/L (21-32); Calcium, Blood 9.4 mg/dL (8.5-10.1); Chloride, Blood 98 mmol/L (98-108); Creatinine, Blood 0.49 mg/dL (0.40-1.00); Glomerular Filtration Rate >60 (60-); Glucose, Blood 95 mg/dL (70-99); Magnesium, Blood 1.9 mg/dL (1.6-2.4); Phosphorus, Blood 3.8 mg/dL (2.5-4.9); Potassium, Blood 4.2 mmol/L (3.5-5.5); Sodium, Blood 132 mmol/L (136-145)
--- NOTE | 2020-12-30 17:49 | NUR ---
ALERT. ORIENTED. UPSET MOST OF DAY. POWERGLIDE PLACED AND FIRST L OF NS INFUSING. PATIENT WANTS TO LEAVE. UNSURE IF SHE IS TIRED OF TREATMENT. PALLIATIVE CARE WILL SEE PATIENT TOMORROW. INDEPENDENT IN ROOM TO CLOSE BSC. COLLIN
--- NOTE | 2020-12-30 18:04 | NUR ---
Met with pt today; she did not answer most of my questions. I introduced myself, but she rolled away toward the wall and would answer each question with, "OKAY!!" I did ask her name, asked where she lives, and how she was today. The only thing she answers is "Ijeoma Ryan" when I asked where she was before coming to the hospital. I attempted to call the number on her face sheet, and it was a gentleman who did not recognize her name. I had the number removed from her facesheet. I also placed a call to [employer] and found someone who works there, and she tells me she does recognize pt's name, but has no information about her. She requests I try to call again tomorrow to speak to jessica, who "may have more infortation." I attempted to help pt with her dinnera. She declined my assistance.
[2020-12-31 05:59] LABS: BASOPHILS ABSOLUTE AUTO 0.06 K/mm3 (0.00-0.23); BASOPHILS PERCENT AUTO 1 % (0-2); EOSINOPHILS ABSOLUTE AUTO 0.21 K/mm3 (0.00-0.68); EOSINOPHILS PERCENT AUTO 2 % (0-6); Hematocrit 25.7 % (33.0-51.0); IMMATURE GRAN ABSOLUTE AUTO 0.04 K/mm3 (0.00-0.10); IMMATURE GRAN PERCENT AUTO 0 % (0-1); LYMPHOCYTES PERCENT AUTO 16 % (21-46); MONOCYTES PERCENT AUTO 16 % (4-13); Mean Corpuscular HGB 28.2 pg (26.0-34.0); Mean Corpuscular HGB Conc 31.1 g/dL (31.5-36.5); Mean Corpuscular Volume 91 fL (80-100); Mean Platelet Volume 9.1 fL (9.1-12.4); NEUTROPHILS ABSOLUTE AUTO 6.08 K/mm3 (1.96-9.15); NEUTROPHILS PERCENT AUTO 65 % (41-73); Platelet Count 779 K/mm3 (150-400); RDW Coefficient Variation 15.8 % (11.7-14.2); RDW Standard Deviation 51.8 fL (35.1-46.3); Red Blood Cell Count 2.84 M/mm3 (3.80-5.20); White Blood Cell Count 9.39 K/mm3 (4.00-11.30)
[2020-12-31 06:23] LABS: Albumin, Blood 1.8 g/dL (3.4-5.0); Anion Gap 2 mmol/L (6-16); Blood Urea Nitrogen 19 mg/dL (8-24); Bun/Creatinine Ratio 39.8 (12.0-20.0); CO2, Blood 31 mmol/L (21-32); Calcium, Blood 8.7 mg/dL (8.5-10.1); Chloride, Blood 102 mmol/L (98-108); Creatinine, Blood 0.48 mg/dL (0.40-1.00); Glomerular Filtration Rate >60 (60-); Glucose, Blood 89 mg/dL (70-99); Phosphorus, Blood 3.6 mg/dL (2.5-4.9); Potassium, Blood 4.1 mmol/L (3.5-5.5); Sodium, Blood 135 mmol/L (136-145)
[2020-12-31 11:43] LABS: Tobramycin, Trough <0.3 ug/mL (0.0-1.9)
[2020-12-31] MEDS ORDERED: ACET325 PO (12:14)
[2020-12-31] MEDS ORDERED: ALBU2.5V5 INH (12:15)
[2020-12-31] MEDS ORDERED: CIPR750 PO (12:15)
[2020-12-31] MEDS ORDERED: AMOCLA875 PO (12:15)
[2020-12-31] MEDS ORDERED: DORN1IH INH (12:15)
[2020-12-31] MEDS ORDERED: DOCU100 PO (12:15)
[2020-12-31] MEDS ORDERED: MIRALAX17 GM PO (12:16)
[2020-12-31] MEDS ORDERED: IPRAT-ALBUT 0.5-3 ML INH (12:16)
[2020-12-31] MEDS ORDERED: VISBIOME 112.51 EACH PO (12:17)
[2020-12-31] MEDS ORDERED: TOBRAMYCIN IV (12:17)
[2020-12-31] MEDS ORDERED: FERSU300 PO (12:18)
[2020-12-31] MEDS ORDERED: Acerola C500 MG PO (12:18)
[2020-12-31 13:29] LABS: SARS-Cov-2 (COVID-19) PCR, MMC NEGATIVE (NEGATIVE)
--- NOTE | 2020-12-31 15:16 | NUR ---
Pat has agreed to go on Hospice, as she states she doesn't enjoy coming "back and forth to the hospital". She indicates she would like to live out her life at [facility], as she is now living there. She does have medicaid benefits, and so she is able to have room and board paid for by medicaid, with Hospice covered by Medicare. Verified this with Katerina at . Message left with Yazmin pt's case management associate for medicaid. Pt to discharge back to this afternoon, and a hospice consult has been ordered via [facility].
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
--- NOTE | 2020-12-31 17:15 | NUR ---
The patient indicated to me today she does not wish to return to the hospital under any circumstances. She was very agreeable to consent to hospice services, so she has a referral for a hospice eval in place for sometime in the next week. She is also agreeable to change her code status to DNR, as she understands that anything aggressive would mean she would end up back in the hospital, and she does not want that, under any circumstances. She verbalizes understanding about the change in code status, what it means, as well as what hospice means.
--- NOTE | 2020-12-31 18:40 | NUR ---
PT AO X 4,PT DENIES PAIN,N/V AND SOB.PT ON 2L NC THIS IS PT BASELINE.PT STILL ON DROPLET PRECAUTIONS,PT ASSESSMENT REMAINS UNCHANGED,PT HAS NO ACUTE EVENTS T/O.PT IS A POSSIBLE DISCHAGE TOMORROW.PT UP TO BSC,PT IN BED,CALL LIGHT IN REACH WILL CONTINUE TO MONITOR.
--- NOTE | 2021-01-01 04:43 | NUR ---
SHIFT SUMMARY PATIENT HAD NO ACUTE CHANGES OBSERVED. AXOX 3 AND INDEPENDENT TO BSC. TAKES MEDICATION WHOLE WITH WATER. POWERGLIDE RM INTACT. ON 2L O2 NC. DENIES PAIN, SOB, AND N/V. VSS/AFEBRILE. CALL LIGHT IN REACH. BED IN LOWEST POSITION. WILL CONTINUE TO MONITOR UNTIL DAY SHIFT NURSE ASSUME CARE.
--- NOTE | 2021-01-01 11:49 | NUR ---
Visit with Makayla this morning. She is withdrawn and doesn't engage in conversation other than to request fresh ice water. Explained that she is likely going to be discharged to [facility] today, she states "I don't care, I'll believe it when I see it." Offered emotional support, pt with poor eye contact. Visit kept short as pt did not want to engage in any conversation. Spoke with nursing who states plan is to discharge back to with a hospice referral. No time set for transportation at the time of this visit.
--- NOTE | 2021-01-01 16:39 | NUR ---
PT ALERT ORIENTED,PT STATUS CHANGE TO DNR,PT HAS NO ACUTES EVENTS T/O SHIFT.PT ASSESSMENT REMAINS UNCHANGED.PT IS DISCHARGE TO [facility] WITH ALL BELONGINGS.
== END 2021-01-01 15:57 | DRG 871 ==
LOC: ER 15:43 → ICUW 21:40 → ICUE 21:40 → MEDS 21:40 → ICUE 23:15 → MEDS 12-23 15:34
PROVIDERS: Internal Medicine; Internal Medicine Critical Care Medicine; Internal Medicine Infectious Disease; Pharmacist; Student in an Organized Health Care Education/Training Program; ADMIT Family Medicine
DX: A41.52 Sepsis due to Pseudomonas (principal); J85.0 Gangrene and necrosis of lung; E43 Unspecified severe protein-calorie malnutrition; R65.21 Severe sepsis with septic shock; J96.21 Acute and chronic respiratory failure with hypoxia; J15.1 Pneumonia due to Pseudomonas; R64 Cachexia; Z68.1 Body mass index [BMI] 19.9 or less, adult; E87.1 Hypo-osmolality and hyponatremia; Z20.822 Contact with and (suspected) exposure to COVID-19; D63.0 Anemia in neoplastic disease; J43.9 Emphysema, unspecified; D69.6 Thrombocytopenia, unspecified; A41.81 Sepsis due to Enterococcus; D50.9 Iron deficiency anemia, unspecified; F32.A Depression, unspecified; F41.9 Anxiety disorder, unspecified; Z90.2 Acquired absence of lung [part of]; Z88.0 Allergy status to penicillin; Z98.51 Tubal ligation status; Z85.118 Personal history of other malignant neoplasm of bronchus and lung; Z79.899 Other long term (current) drug therapy; Z99.81 Dependence on supplemental oxygen; Z91.048 Other nonmedicinal substance allergy status
CPT/HCPCS: 36415; 51702; 71045; 71046; 71250; 71260; 72040; 72070; 80048; 80053; 80069; 80200; 80202; 82565; 82607; 82728; 82746; 83540; 83550; 83605; 83735; 83880; 84145; 84484; 85025; 85027; 85379; 87040; 87070; 87077; 87186; 87205; 87305; 87389; 88108; 88312; 93005; 93010; 94640; 94667; 94760; 94762; 96365-59; 96367-59; 96368; 99285-25; A9270; J0692; J1650; J1956; J2916; J3260; J3370; J7030; J7040; J7050; J7060; Q9967; U0004

== ENCOUNTER 2021-02-07 11:04 | Emergency (ER) | payer MEDICARE, OTHER ==
[~2021-02-07] VITALS: Ht 167.6 cm; Wt 44.5 kg
[~2021-02-07 11:04] MED LIST changes: +ACET325 PO; +AMOCLA875 PO; +Acerola C500 MG PO; +CIPR750 PO; +DOCU100 PO; +DORN1IH INH; +FERSU300 PO; +MIRALAX17 GM PO; +TOBRAMYCIN IV; +VISBIOME 112.51 EACH PO
[2021-02-07 11:58] LABS: BASOPHILS ABSOLUTE AUTO 0.04 K/mm3 (0.00-0.23); BASOPHILS PERCENT AUTO 0 % (0-2); EOSINOPHILS ABSOLUTE AUTO 0.15 K/mm3 (0.00-0.68); EOSINOPHILS PERCENT AUTO 1 % (0-6); Hematocrit 30.6 % (33.0-51.0); Hemoglobin 9.5 g/dL (11.5-16.0); IMMATURE GRAN ABSOLUTE AUTO 0.04 K/mm3 (0.00-0.10); IMMATURE GRAN PERCENT AUTO 0 % (0-1); LYMPHOCYTES PERCENT AUTO 12 % (21-46); MONOCYTES ABSOLUTE AUTO 1.18 K/mm3 (0.16-1.47); MONOCYTES PERCENT AUTO 11 % (4-13); Mean Corpuscular HGB 26.6 pg (26.0-34.0); Mean Corpuscular Volume 86 fL (80-100); Mean Platelet Volume 8.5 fL (9.1-12.4); NEUTROPHILS ABSOLUTE AUTO 8.55 K/mm3 (1.96-9.15); NEUTROPHILS PERCENT AUTO 76 % (41-73); Platelet Count 884 K/mm3 (150-400); RDW Coefficient Variation 14.9 % (11.7-14.2); RDW Standard Deviation 46.8 fL (35.1-46.3); Red Blood Cell Count 3.57 M/mm3 (3.80-5.20); White Blood Cell Count 11.26 K/mm3 (4.00-11.30)
[2021-02-07 12:17] LABS: Alanine Aminotransfer (ALT/SGP 20 U/L (12-78); Albumin, Blood 2.1 g/dL (3.4-5.0); Albumin/Globulin Ratio 0.4 (0.8-1.8); Alk Phos 74 U/L (50-136); Anion Gap 4 mmol/L (6-16); Aspartate Aminotrans (AST/SGOT 14 U/L (12-37); Bilirubin, Total 0.2 mg/dL (0.1-1.0); Blood Urea Nitrogen 12 mg/dL (8-24); Bun/Creatinine Ratio 17.7 (12.0-20.0); CO2, Blood 30 mmol/L (21-32); Calcium, Blood 9.2 mg/dL (8.5-10.1); Chloride, Blood 97 mmol/L (98-108); Creatinine, Blood 0.68 mg/dL (0.40-1.00); Globulin, Blood 5.9 g/dL (2.2-4.0); Glomerular Filtration Rate >60 (60-); Glucose, Blood 90 mg/dL (70-99); Potassium, Blood 4.1 mmol/L (3.5-5.5); Sodium, Blood 131 mmol/L (136-145); Troponin I <0.015 ng/mL (0.000-0.040)
[2021-02-07] MEDS ORDERED: OMEP20ER PO (13:25)
== END 2021-02-07 14:52 | disposition home or self-care (01) ==
LOC: ER 11:04
PROVIDERS: Emergency Medicine
DX: R07.9 Chest pain, unspecified (principal); R00.0 Tachycardia, unspecified; R10.9 Unspecified abdominal pain; E86.0 Dehydration; Z88.0 Allergy status to penicillin; Z88.8 Allergy status to other drugs, medicaments and biological substances; Z79.899 Other long term (current) drug therapy; J43.9 Emphysema, unspecified; F17.200 Nicotine dependence, unspecified, uncomplicated
CPT/HCPCS: 36415; 71260; 80053; 83690; 84484; 85025; 93005; 93010; J7030; Q9967

== ENCOUNTER → 2021-02-15 | Outpatient (CLI) | payer MEDICARE, OTHER ==
[~2021-02-15] MED LIST changes: +LEVO750 PO; +LORA.5 PO; +MORP20L PO; +OMEP20ER PO; +TRANSDERM-SCOP1 EAC8 TD
== END | disposition home or self-care (01) ==
LOC: LAB UVN 02:00 → EDSTATUS 13:12
DX: J15.1 Pneumonia due to Pseudomonas (principal)
CPT/HCPCS: 87015; 87070; 87116; 87205; 87206

== ENCOUNTER 2021-02-21 20:43 | Observation (INO) | payer MEDICARE, OTHER ==
[~2021-02-21] VITALS: Ht 162.6 cm; Wt 65.8 kg
[~2021-02-21 20:43] MED LIST changes: -LEVO750 PO; -LORA.5 PO; -MORP20L PO; -TRANSDERM-SCOP1 EAC8 TD
[2021-02-21 21:36] LABS: BASOPHILS ABSOLUTE AUTO 0.07 K/mm3 (0.00-0.23); BASOPHILS PERCENT AUTO 0 % (0-2); EOSINOPHILS ABSOLUTE AUTO 0.16 K/mm3 (0.00-0.68); EOSINOPHILS PERCENT AUTO 1 % (0-6); Hematocrit 26.9 % (33.0-51.0); Hemoglobin 8.3 g/dL (11.5-16.0); IMMATURE GRAN ABSOLUTE AUTO 0.09 K/mm3 (0.00-0.10); IMMATURE GRAN PERCENT AUTO 1 % (0-1); LYMPHOCYTES ABSOLUTE AUTO 1.76 K/mm3 (0.84-5.20); LYMPHOCYTES PERCENT AUTO 11 % (21-46); MONOCYTES ABSOLUTE AUTO 1.51 K/mm3 (0.16-1.47); MONOCYTES PERCENT AUTO 9 % (4-13); Mean Corpuscular HGB 26.3 pg (26.0-34.0); Mean Corpuscular HGB Conc 30.9 g/dL (31.5-36.5); Mean Corpuscular Volume 85 fL (80-100); Mean Platelet Volume 8.1 fL (9.1-12.4); NEUTROPHILS ABSOLUTE AUTO 12.94 K/mm3 (1.96-9.15); NEUTROPHILS PERCENT AUTO 78 % (41-73); Platelet Count 823 K/mm3 (150-400); RDW Coefficient Variation 15.3 % (11.7-14.2); Red Blood Cell Count 3.15 M/mm3 (3.80-5.20); White Blood Cell Count 16.53 K/mm3 (4.00-11.30)
[2021-02-21 22:02] LABS: Alanine Aminotransfer (ALT/SGP 12 U/L (12-78); Albumin/Globulin Ratio 0.4 (0.8-1.8); Alk Phos 60 U/L (50-136); Anion Gap 10 mmol/L (6-16); Aspartate Aminotrans (AST/SGOT 10 U/L (12-37); Bilirubin, Total 0.2 mg/dL (0.1-1.0); Blood Urea Nitrogen 10 mg/dL (8-24); Bun/Creatinine Ratio 16.7 (12.0-20.0); CO2, Blood 23 mmol/L (21-32); Calcium, Blood 9.1 mg/dL (8.5-10.1); Chloride, Blood 97 mmol/L (98-108); Globulin, Blood 5.6 g/dL (2.2-4.0); Glomerular Filtration Rate >60 (60-); Glucose, Blood 113 mg/dL (70-99); Potassium, Blood 4.2 mmol/L (3.5-5.5); Sodium, Blood 130 mmol/L (136-145); Total Protein, Blood 7.6 g/dL (6.4-8.2)
[2021-02-21] MEDS ORDERED: FERSU300 PO (22:09)
[2021-02-21 22:13] LABS: Influenza A, PCR NEGATIVE (NEGATIVE); Influenza B, PCR NEGATIVE (NEGATIVE); Resp Syncytial Virus, PCR NEGATIVE (NEGATIVE); SARS-Cov-2 (COVID-19) PCR, MMC NEGATIVE (NEGATIVE)
--- NOTE | 2021-02-22 09:20 | NUR ---
Palliative Care Consult for Readmission and Goals of Care. 65 year old female admitted to the hospital for Severe Sepsis with Lactic Acicidosis. Pt's medical history and comorbidities include: Recurrent Left Side PNA, Lung Cancer S/P L Upper Lobectomy, Severe COPD (O2 dependent), Acute on Chronic Respiratory Failure, Chronic Anemia, Chronic Hyponatremia, Severe Protein Calorie Malnutrition with Cachexia, Depression, and Anxiety. Pt has multiple ED and hospitalizations this year. Pt resting on gurney upon arrival. Pt denies pain at this time. Pt appears angry and frustrated reporting she hates the hospital and wants to go home. Discussed hospice as an option and gentle education on hospice philosophy. Pt is agreeable to hospice services and reports preference for agency that is available the soonest. She states "I'm done" reporting she does not like having IVs and being in the hospital. Called and spoke with facility nurse Berenice. Berenice reports Pt experiences occasional intermittent incontinence, needs help with bathing and dressing. Pt does require supervision with transfers and ambulation and uses the wall and furniture for stability. Pt would benefit from FWW but refuses. Pt's appetite is poor to fair eating approximately 25-50% of her meals. Berenice also reports Pt's PCP reported yesterday that Pt's cancer has returned. Spoke with ED Desulfurizer Hand Pema and discussed case. Pema will call [facility] for referral. 50% ADLs 4/6 Pt high risk for readmission and is agreeable to hospice services. Palliative Care will remain available.
--- NOTE | 2021-02-22 11:17 | NUR ---
Ethics consultation service requested. Medical history, prognostic indicators, and disharge plan reviewed. The mariela has an advance care planning instrument on file. The device is consistent with a medically non-aggressive approach. The patient has stipulated that she wants to forgo chest compressions, mechanical intubation, and other forms of invasive treatment. The principal has expressed interest in making a hospice election and pursuing home based or facility based care. Her level of decision making is understood to be stable for communicating this type of preference. Furthermore such a care plan is relatively homogenous with her POLST. My recommendation would be for the advance care planning instrument to be amended to comfort measures only to be fully consistent. Thank you for this consult. Lenny Raphael ThD strategy
[2021-02-22] MEDS ORDERED: LEVO750 PO (12:52)
[2021-02-22] MEDS ORDERED: LORA.5 PO (12:55)
[2021-02-22] MEDS ORDERED: ONDA4ODT MM (12:56)
[2021-02-22] MEDS ORDERED: MORP20L PO (12:56)
[2021-02-22] MEDS ORDERED: TRANSDERM-SCOP1 EAC8 TD (12:57)
== END 2021-02-22 13:50 | disposition home or self-care (01) ==
LOC: ER 20:43 → ERHOLD 20:44
PROVIDERS: Emergency Medicine; ADMIT Internal Medicine
DX: A41.9 Sepsis, unspecified organism (principal); R65.20 Severe sepsis without septic shock; J15.1 Pneumonia due to Pseudomonas; J44.0 Chronic obstructive pulmonary disease with (acute) lower respiratory infection; E87.2 Acidosis; R91.8 Other nonspecific abnormal finding of lung field; E87.1 Hypo-osmolality and hyponatremia; Z85.118 Personal history of other malignant neoplasm of bronchus and lung; Z87.891 Personal history of nicotine dependence; Z88.0 Allergy status to penicillin; Z79.899 Other long term (current) drug therapy; Z20.822 Contact with and (suspected) exposure to COVID-19
CPT/HCPCS: 0241U; 36415; 71045; 80053; 83605; 83880; 85025; 87040; 93005; 93010; 94640; 94760; 96365; 99285-25; A9270; G0378; J3260; J7030